=== PATIENT | female | born 1980 | race Two or more races ===

== ENCOUNTER 2024-02-25 12:48 | Emergency (ER) | payer MEDICAID, SELFPAY ==
[2024-02-25 13:32] VITALS: BP 120/78; PULSE 81; RESP 18; TEMP 36.9; O2SAT 99; BMI 32.4
--- NOTE | 2024-02-25 13:45 | XR_ITS ---
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
--- NOTE | 2024-02-25 13:48 | PD.EDRME ---
Rapid Medical Screening Exam RME Arrival date/time: 02/25/24 12:48 43-year-old female presents emergency department complaints of vaginal bleeding intermittently for 1 month. Reports history of labial mass and currently on control. Mild pelvic pain. I have greeted and performed a focused initial assessment of this patient. Initial appropriate labs ordered at this time. A comprehensive ED assessment and evaluation of the patient and analysis of all test and completion of medical decision making process will be conducted by additional ED provider. Chief Complaint: Vaginal Bleeding Time Seen by Provider: 02/25/24 12:52 Vital signs: Vital Signs Temperature 98.5 F 02/25/24 13:32 Pulse Rate 81 02/25/24 13:32 Respiratory Rate 18 02/25/24 13:32 Blood Pressure 120/78 02/25/24 13:32 Pulse Oximetry (%) 99 02/25/24 13:32 Oxygen Delivery Method Room Air 02/25/24 13:32
[2024-02-25 14:04] LABS: Basophils % (Auto) 0 % (0-2.5); Eosinophils # (Auto) 0.1 Thou/mm3 (0.0-0.5); Eosinophils % (Auto) 1 % (0-10); Hematocrit 35.8 % (36.0-46.0); Immature Granulocytes % (Auto) 0 % (0-0); Immature Granulocytes Auto 0.02 Thou/mm3 (0.00-0.00); Lymphocytes # (Auto) 2.8 Thou/mm3 (1.0-4.8); Lymphocytes % (Auto) 35 % (10-50); Mean Corpuscular HGB Conc 33.5 g/dl (31.0-37.0); Mean Corpuscular Hemoglobin 28.8 pg (25.0-35.0); Mean Corpuscular Volume 86 fL (80-100); Monocytes # (Auto) 0.5 Thou/mm3 (0.0-0.8); Monocytes % (Auto) 6 % (0-12); Neutrophils # (Auto) 4.6 Thou/mm3 (1.8-7.7); Neutrophils % (Auto) 57 % (37-80); Nucleated Red Blood Cell % 0 /100 WBC (0); Platelet Count 262 Thou/mm3 (140-440); RDW Standard Deviation 38.4 fL (36.4-46.3); Red Blood Count 4.16 Miln/mm3 (4.00-5.20); White Blood Count 7.9 Thou/mm3 (3.6-11.0)
[2024-02-25 14:29] LABS: Alanine Aminotransferase 18 U/L (10-49); Albumin, Serum 4.6 gm/dL (3.5-5.0); Alkaline Phosphatase 73 U/L (46-116); Anion Gap 7 (7-16); Aspartate Amino Transferase 13 U/L (0-34); BUN/Creatinine Ratio 17 Ratio (12-20); Bilirubin,Total 1.1 mg/dL (0.3-1.2); Blood Urea Nitrogen 12 mg/dL (9-23); Calcium 9.8 mg/dL (8.3-10.6); Calcium (Corrected) 9.8 mg/dL (8.5-10.1); Carbon Dioxide 29.2 mMol/L (20.0-31.0); Chloride 103 mMol/L (98-107); Creatinine (Component) 0.7 mg/dL (0.6-1.3); Globulin 2.3 gm/dL (2.3-3.5); Glucose 139 mg/dL (74-106); Lipase 33 U/L (12-53); Osmolality,Calculated 279 (275-295); Potassium 4.1 mMol/L (3.4-5.1); Sodium 139 mMol/L (136-145); Total Protein 6.9 gm/dL (5.7-8.2); eGFR > 60 See Note
[2024-02-25 15:43] LABS: Collection Type, Urine Catheter
[2024-02-25 15:55] LABS: HCG Qualitative,Urine Negative
[2024-02-25 16:00] LABS: Bilirubin,Urine Negative (Negative); Blood,Urine 3+ (Negative); Clarity,Urine Clear (Clear/Hazy); Color,Urine Lt-Brown (Lt Yel-Yel); Glucose, Urine Negative (Negative); Ketones,Urine Negative (Negative); Leukocyte Esterase,Urine Negative (Negative); Nitrite,Urine Negative (Negative); PH,Urine 7.5 (5.0-7.0); Protein,Urine 1+ (Neg - Trace); RBC,Urine 1 /hpf (0-3); Specific Gravity,Urine 1.013 (1.001-1.035); Squamous Epithelial Cell,Urine 11 /hpf (0-5); Urobilinogen,Urine Negative mg/dL (0.0-1.0); WBC,Urine 3 /hpf (0-5)
--- NOTE | 2024-02-25 16:10 | EDNOTE_ITS ---
<Statement entered by Rose Westbrook MD - 02/25/24 17:06> As co-signing physician, I was present and available for consult prn. I concur with the plan and care as documented by the midlevel provider. ED OB Contraction Preg RMI/HPI General Chief complaint: Vaginal Bleeding Stated complaint: Vaginal bleeding X 2 days Time Seen by Provider: 02/25/24 12:52 Arrival date/time: 02/25/24 12:48 RME / HPI RME / HPI Narrative: 43-year-old female patient with significant history of on and off vaginal bleeding for 1 month, getting worse for the last 2 days severity moderate. Patient is currently on control. Patient also complained of mild pelvic discomfort. Related Data Home Medications ?Medication ?Instructions ?Recorded ?Confirmed metformin 1,000 mg tablet 1,000 mg PO QDAY 11/26/22 11/27/22 semaglutide 7 mg tablet (Rybelsus) 7 mg PO QAM 11/27/22 11/27/22 Previous Rx's ?Medication ?Instructions ?Recorded docusate sodium 100 mg capsule 100 mg PO BID #40 caps 11/27/22 (Colace) hydrocodone 5 mg-acetaminophen 325 1 tab PO Q6H PRN pain (scale score 11/27/22 mg tablet 7-10) #20 tabs ibuprofen 600 mg tablet 600 mg PO Q8H PRN pain (scale 11/27/22 score 4-6) #15 tabs fluconazole 150 mg tablet 150 mg PO Q3D 2 doses #2 tabs 06/13/23 Allergies Allergy/AdvReac Type Severity Reaction Status Date / Time No Known Allergies Allergy Verified 05/19/23 17:23 Review of Systems Review of Systems Narrative Review of Systems: Review of system reviewed and within normal limits except mentioned in HPI ED Exam Narrative Physical exam: VITAL SIGNS: Reviewed. GENERAL APPEARANCE: Alert and interactive, follows commands, no acute distress, HEAD AND FACE: Non-traumatic. ENT: PERRL, pink conjunctivitis, eyelid no trauma, Mucous membrane moist. NECK: Supple, nontender, no nuchal rigidity. CHEST: No tenderness, no crepitus, no paradoxical movement, no retractions. LUNGS: Clear, well ventilated, symmetric, no rales, no wheezing, no ronchi, no stridor, good breath sounds bilaterally. HEART: Regular rate, regular rhythm, no murmur, no gallops. ABDOMEN: Soft, positive bowel sounds, nondistended, no guarding, nontender, no rebound, no masses, RECTAL: Deferred. GENITAL: Deferred. NEUROLOGICAL: Gross motor function intact sensory function intact, Appropriate for age. MUSCULOSKELETAL: low back nontender, full range of motion. EXTREMITIES: Nontender, full range of motion. SKIN: Color pink, dry, no rash, no lacerations, no abrasions, no contusions. LYMPHATICS: Deferred. Course Quality Measures none Orders Category Date Time Status US pelvic complete Stat Exams 02/25/24 13:45 Completed CBC Stat Lab 02/25/24 13:53 Completed Comprehensive Metabolic Panel Stat Lab 02/25/24 13:53 Completed HCG Qualitative,Urine Stat Lab 02/25/24 15:21 Completed Lipase Stat Lab 02/25/24 13:53 Completed Urinalysis Stat Lab 02/25/24 15:21 Completed Vital Signs Vital signs: Vital Signs Temperature 98.5 F 02/25/24 13:32 Pulse Rate 81 02/25/24 13:32 Respiratory Rate 18 02/25/24 13:32 Blood Pressure 120/78 02/25/24 13:32 Pulse Oximetry (%) 99 02/25/24 13:32 Oxygen Delivery Method Room Air 02/25/24 13:32 Vaginal Bleeding MDM Narrative MDM Narrative: Patient's workup today all came back normal patient is not hemoglobin is 12 hematocrit of 35.8 platelets is normal urinalysis no UTI ultrasound of the pelvis showed 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 Sim jimena was given a copy of her ultrasound for her to follow-up with her [facility]. Patient agrees with the plan Patient data External records reviewed:: None Clinical information provided by:: patient Social determinants that could affect healthcare access:: none Patient has the following chronic illnesses:: None How is presenting disease/condition affected by chronic disease/condition?: no chronic disease Evaluation data The following diagnostics were reviewed and interpreted by me:: lab results and radiology exam(s) Lab and/or radiology exams considered but not ordered:: None Interpretation Summary: Ultrasound of pelvis showed 4.9 x 4.1 x 4.6 cm right uterine fundal mass most c onsistent with fibroid degeneration, recommend six-month transvaginal pelvic sonography follow-up. Laboratory workup came back unremarkable no anemia. Medications / Prescriptions Medications or Prescriptions considered but not ordered:: None Medication administrations:: None Consultations Consultation(s) initiated? (list below): No Diagnosis Vaginal Bleeding Differential Diagnosis: dysfunctional uterine bleeding, menometrorrhagia and vaginal bleeding Most likely diagnosis given after review of the tests above:: Dysfunctional uterine bleeding, vaginal bleeding, uterine fibroid Admission Indicated Admission indicated?: not indicated Admission Request Was there a request for admission?: No Disposition Plan Disposition Plan: Discharge Discharge Attestation Discharge Attestation: The patient was given an opportunity to ask questions and understood the discharge instructions. Discharge instructions specifically effects, indications for sooner follow up or return to the emergency department, and the expected course of current diagnosis. Patient condition: Stable Discharge Plan Plan Patient Disposition: HOME (Self Care) Disposition Comment: Stable Prescriptions/Referrals Prescriptions/Med Rec: No Action metformin 1,000 mg Tablet 1,000 mg PO QDAY Rybelsus 7 mg tablet 7 mg PO QAM Patient Comments: TOME MIR TABLETA TODOS LOS D 30 MINUTOS ANTES DE LA PRIMERA COMIDA DEL LUIS E CON 4 OZ DE AGUA docusate sodium [Colace] 100 mg capsule 100 mg PO BID Qty: 40 0RF hydrocodone-acetaminophen 5-325 mg tablet 1 tab PO Q6H MDD 4 PRN (Reason: pain (scale score 7-10)) Qty: 20 0RF ibuprofen 600 mg tablet 600 mg PO Q8H PRN (Reason: pain (scale score 4-6)) Qty: 15 0RF fluconazole 150 mg tablet 150 mg PO Q3D Qty: 2 0RF Referrals: Haile Peng [Primary Care Provider] - In 1 week Problem List Clinical Impression: Vaginal bleeding, Fibroid, uterine Patient/Caregiver Discharge Instructions Discharge Activity: activity as tolerated Education Materials: ED Dysfunctional Uterine Bleeding Additional Instructions: Thank you for the opportunity for serving you today. You are stable for discharged . You are advised to: Follow-up with your PCP in 1 to 2 days Return to ED for worsening of symptoms Increase oral fluids Follow-up with your PCP and asked for referral to [facility] regarding your uterine fibroids. Print Language: Croatian Stand Alone Forms: Gu[facility] Award Info., Patient Portal Info Letter PA/CATTLE TRADER Supervising Physician PA/CATTLE TRADER Supervising Physician: MD Dariana
== END 2024-02-25 16:51 | disposition home or self-care (01) ==
PROVIDERS: Nurse Practitioner Primary Care; Emergency Provider Emergency Medicine; PCP Physician Assistant
DX: D25.9 Leiomyoma of uterus, unspecified (principal); N93.9 Abnormal uterine and vaginal bleeding, unspecified
CPT/HCPCS: 36415; 76856; 80053; 81001; 81025; 83690; 85025; 99284

== ENCOUNTER 2024-03-21 13:04 | Emergency (ER) | payer MEDICAID, SELFPAY ==
[2024-03-21 13:05] VITALS: BMI 34.0
[2024-03-21 14:16] VITALS: BP 109/75; PULSE 96; RESP 17; TEMP 37.1; O2SAT 99
--- NOTE | 2024-03-21 14:22 | EDNOTE_ITS ---
Lower Extremity Injury RME/HPI General Chief Complaint: Ankle/Foot Injury Stated Complaint: LEFT FOOT INJURY TODAY Time Seen by Provider: 03/21/24 14:00 Source: patient Arrival date/time: 03/21/24 13:04 This is a 43-year-old female presents the emergency department complaints of left ankle pain and abrasion after injury today she states she was walking down the heel during her morning walk when she accidentally stepped on a rock causing her to invert her left ankle. Complains of pain with every step. No other injuries reported. Mode of arrival: ambulatory Related Data Home Medications ?Medication ?Instructions ?Recorded ?Confirmed metformin 1,000 mg tablet 1,000 mg PO QDAY 11/26/22 11/27/22 semaglutide 7 mg tablet (Rybelsus) 7 mg PO QAM 11/27/22 11/27/22 Previous Rx's ?Medication ?Instructions ?Recorded docusate sodium 100 mg capsule 100 mg PO BID #40 caps 11/27/22 (Colace) hydrocodone 5 mg-acetaminophen 325 1 tab PO Q6H PRN pain (scale score 11/27/22 mg tablet 7-10) #20 tabs ibuprofen 600 mg tablet 600 mg PO Q8H PRN pain (scale 11/27/22 score 4-6) #15 tabs fluconazole 150 mg tablet 150 mg PO Q3D 2 doses #2 tabs 06/13/23 ibuprofen 600 mg tablet 600 mg PO QID PRN fever or pain 03/21/24 #30 tabs Allergies Allergy/AdvReac Type Severity Reaction Status Date / Time No Known Allergies Allergy Verified 03/21/24 13:07 Review of Systems Review of Systems Systems Reviewed: All systems reviewed, normal except as documented Narrative Review of Systems: Gen: No fever, no chills, no weight loss EYES: No discharge, no visual changes, no pain HEENT: No ear pain, no congestion, no sore throat PULM: No shortness of breath, no cough, no congestion CV: No chest pain, no dyspnea on exertion, no palpitations GI: No nausea, no vomiting, no diarrhea, no pain, no constipation : No frequency, no urgency,? no dysuria Musc/skel: left ankle pain, no back pain Skin: No rash? ED Exam Narrative Physical exam: General: Sittiing in Exam table in no acute distress, answering questions derek ropriately HENT: normocephalic, atraumatic, EOMI, PERRLA, moist mucous membranes Chest: chest wall is nontender Cardiac: regular rate and rhythm, normal S1 and S2, no murmurs, rubs, or gallops, capillary refill ?2 seconds Pulmonary: clear to auscultation bilaterally, no wheezing, crackles, or rhonchi Abdominal: active bowel sounds, soft, nontender, nondistended Neuro: A&OX3, CN II-XII intact, sensation grossly intact bilaterally in UE and LE. Skin: no rashes, no ecchymosis Ext: Left ankle lateral malleolus swelling tender to palpation. Course Quality Measures none Orders Category Date Time Status Crutches .NOW Care 03/21/24 15:04 Active Splint / Immobilizer STAT Care 03/21/24 15:04 Active XR ankle comp LT min 3V Stat Exams 03/21/24 14:22 Completed Ibuprofen Tab [Motrin Tab] Med 03/21/24 14:21 Discontinued 800 mg PO X1 ONE Vital Signs Vital signs: Vital Signs Temperature 98.7 F 03/21/24 14:16 Pulse Rate 96 03/21/24 14:16 Respiratory Rate 17 03/21/24 14:16 Blood Pressure 109/75 03/21/24 14:16 Pulse Oximetry (%) 99 03/21/24 14:16 Oxygen Delivery Method Room Air 03/21/24 14:16 Extremity Injury, Lower MDM Narrative MDM Narrative:: There is no clinical indication for compartment syndrome at this time, patient has positive pedal and popliteal pulses. Patient's left calf/leg is not swollen, neg pain or taut. There is mild swelling to left ankle, 2 the area of the sprain. The patient is not presenting with pain out of proportion at this time. Patient can be safely discharged with the use of crutches, ankle stirrup. Patient instructed to please not bear weight on that limb. Mother instructed to take patient to primary doctor for orthopedic referral if indicated and further management Patient data External records reviewed:: [facility] previous records Clinical information provided by:: patient Social determinants that could affect healthcare access:: none Patient has the following chronic illnesses:: None How is presenting disease/condition affected by chronic disease/condition?: no chronic disease Evaluation data The following diagnostics were reviewed and interpreted by me:: radiology exam(s) Lab and/or radiology exams considered but not ordered:: no Interpretation Summary: EXAMINATION: Ankle, left 3 views . Technique: Ankle AP, oblique, lateral 3 views Date and time of exam: March 21, 2024 1440 hours INDICATIONS: Patient fell today with injury to the ankle, ankle pain. FINDINGS: No acute fracture No dislocation No foreign body IMPRESSION: No acute fracture Medications / Prescriptions Medications or Prescriptions considered but not ordered:: no Medication administrations:: Medication Administration History Discontinued Medications Ibuprofen (Ibuprofen Tab 400 Mg Tablet) 800 mg PO X1 ONE Stop: 03/21/24 14:22 Last Admin: 03/21/24 14:57 Dose: 800 mg Documented By: KF All medications administered and effective Consultations Consultation(s) initiated? (list below): No Diagnosis Extremity Injury, Lower Differential Diagnosis: ankle sprain and strain, acute internal derangement of knee and ankle fracture Most likely diagnosis given after review of the tests above:: ankle Sprain Admission Indicated Admission indicated?: not indicated Admission Request Was there a request for admission?: No Disposition Plan Disposition Plan: Discharge Discharge Attestation Discharge Attestation: The patient and all family members were given an opportunity to ask questions and understood the discharge instructions. Discharge instructions specifically effects, indications for sooner follow up or return to the emergency department, and the expected course of current diagnosis. Patient condition: Stable Discharge Plan Plan Patient Disposition: HOME (Self Care) Patient condition on transfer: Stable Prescriptions/Referrals Prescriptions/Med Rec: New ibuprofen 600 mg tablet 600 mg PO QID PRN (Reason: fever or pain) Qty: 30 0RF No Action metformin 1,000 mg Tablet 1,000 mg PO QDAY Rybelsus 7 mg tablet 7 mg PO QAM Patient Comments: TOME MIR TABLETA TODOS LOS D 30 MINUTOS ANTES DE LA PRIMERA COMIDA DEL LUIS E CON 4 OZ DE AGUA docusate sodium [Colace] 100 mg capsule 100 mg PO BID Qty: 40 0RF hydrocodone-acetaminophen 5-325 mg tablet 1 tab PO Q6H MDD 4 PRN (Reason: pain (scale score 7-10)) Qty: 20 0RF ibuprofen 600 mg tablet 600 mg PO Q8H PRN (Reason: pain (scale score 4-6)) Qty: 15 0RF fluconazole 150 mg tablet 150 mg PO Q3D Qty: 2 0RF Problem List Clinical Impression: Ankle sprain and strain Patient/Caregiver Discharge Instructions Discharge Activity: activity as tolerated Education Materials: ED Ankle Sprain (Adult) Additional Instructions: Usted blevins sido evaluado hoy en el Departamento de Emergencias. La radiograf?a de tu tobillo es negativa Puede alternar Tylenol y Motrin cada 4 a 6 horas para ayudar a controlar el dolor. Tambi?n descanse, aplique hielo y eleve el tobillo para controlar el dolor. usar los crutches. Johnson un seguimiento con mendoza m?dico de atenci?n primaria seg?n sea necesario. Si no tiene un m?dico de atenci?n primaria, puede llamar a mendoza fred??a de seguros para buscar ailin. Si no tiene seguro, puede acudir al departamento de finanzas/registro para obtener m?s ayuda. Regrese al Departamento de Emergencias si experimenta un empeoramiento del dolor, entumecimiento/hormigueo, cambio de color en los dedos de los pies o cualquier otro s?ntoma preocupante. Print Language: Bahraini Stand Alone Forms: Guillermina Award Info., Patient Portal Info Letter PA/FISHING ROD MECHANIC Supervising Physician PA/FISHING ROD MECHANIC Supervising Physician: Dr. Steven
[2024-03-21] MEDS: IBUPROFEN TAB 400 MG TABLET 800 MG PO (14:57)
== END 2024-03-21 16:14 | disposition home or self-care (01) ==
PROVIDERS: Emergency Provider Emergency Medicine
DX: S93.402A Sprain of unspecified ligament of left ankle, initial encounter (principal); S96.912A Strain of unspecified muscle and tendon at ankle and foot level, left foot, initial encounter; W18.31XA Fall on same level due to stepping on an object, initial encounter; Y93.01 Activity, walking, marching and hiking
CPT/HCPCS: 29515; 73610; 99283; A9270

== ENCOUNTER 2024-05-19 14:04 | Emergency (ER) | payer MEDICAID, SELFPAY ==
[2024-05-19 14:25] VITALS: BP 121/86; PULSE 99; RESP 16; TEMP 36.9; O2SAT 98; BMI 31.7
--- NOTE | 2024-05-19 14:39 | XR_ITS ---
Examination: Pelvic ultrasound, transabdominal, complete Technique: Transabdominal ultrasound of the pelvis performed using grayscale imaging Date and time of exam: May 19, 2024 1451 hours Comparison February 25, 2024 INDICATIONS: Onset of pelvic pain and bleeding today FINDINGS: Uterus 12.4 cm endometrial stripe 0.8 cm Uterine fundal mass 6.4 x 5.1 x 5.2 cm Ovaries obscured by bowel gas IMPRESSION: Uterine area of probable fundal fibroid degeneration, 6.4 x 5.1 x 5.3 cm Recommend 3 month follow-up transvaginal pelvic sonography
[2024-05-19 15:15] LABS: Collection Type, Urine Clean Catch
[2024-05-19 15:21] LABS: HCG Qualitative,Urine Negative
[2024-05-19 15:26] LABS: Bacteria,Urine 4+; Bilirubin,Urine 1+ (Negative); Blood,Urine Negative (Negative); Clarity,Urine Clear (Clear/Hazy); Color,Urine Drk-Yellow (Lt Yel-Yel); Glucose, Urine 1+ (Negative); Ketones,Urine 1+ (Negative); Leukocyte Esterase,Urine Positive (Negative); Nitrite,Urine Negative (Negative); Protein,Urine 2+ (Neg - Trace); RBC,Urine 1 /hpf (0-3); Squamous Epithelial Cell,Urine 2 /hpf (0-5); WBC,Urine 1 /hpf (0-5)
[2024-05-19 15:30] LABS: Culture Indicated,Urine Yes; Specific Gravity,Urine > 1.030 (1.001-1.035)
[2024-05-19 15:53] LABS: Basophils % (Auto) 0 % (0-2.5); Eosinophils # (Auto) 0.1 Thou/mm3 (0.0-0.5); Eosinophils % (Auto) 1 % (0-10); Hematocrit 37.4 % (36.0-46.0); Hemoglobin 12.7 g/dL (12.0-16.0); Immature Granulocytes % (Auto) 0 % (0-0); Immature Granulocytes Auto 0.02 Thou/mm3 (0.00-0.00); Lymphocytes # (Auto) 2.8 Thou/mm3 (1.0-4.8); Lymphocytes % (Auto) 31 % (10-50); Mean Corpuscular Hemoglobin 28.6 pg (25.0-35.0); Mean Corpuscular Volume 84 fL (80-100); Monocytes # (Auto) 0.5 Thou/mm3 (0.0-0.8); Monocytes % (Auto) 6 % (0-12); Neutrophils # (Auto) 5.5 Thou/mm3 (1.8-7.7); Neutrophils % (Auto) 62 % (37-80); Nucleated Red Blood Cell % 0 /100 WBC (0); Platelet Count 267 Thou/mm3 (140-440); RDW Standard Deviation 38.3 fL (36.4-46.3); Red Blood Count 4.44 Miln/mm3 (4.00-5.20); White Blood Count 8.9 Thou/mm3 (3.6-11.0)
[2024-05-19 16:08] LABS: Alanine Aminotransferase 13 U/L (10-49); Albumin, Serum 4.6 gm/dL (3.5-5.0); Albumin/Globulin Ratio 1.6 (1.2-2.2); Alkaline Phosphatase 64 U/L (46-116); Anion Gap 10 (7-16); Aspartate Amino Transferase 15 U/L (0-34); BUN/Creatinine Ratio 16 Ratio (12-20); Bilirubin,Total 0.6 mg/dL (0.3-1.2); Blood Urea Nitrogen 14 mg/dL (9-23); Calcium 10.5 mg/dL (8.3-10.6); Calcium (Corrected) 10.5 mg/dL (8.5-10.1); Carbon Dioxide 24.6 mMol/L (20.0-31.0); Chloride 104 mMol/L (98-107); Creatinine (Component) 0.9 mg/dL (0.6-1.3); Estimated Creatinine Clearance 79.1 mL/min (>60); Globulin 2.9 gm/dL (2.3-3.5); Glucose 181 mg/dL (74-106); Lipase 31 U/L (12-53); Osmolality,Calculated 283 (275-295); Sodium 139 mMol/L (136-145); Total Protein 7.5 gm/dL (5.7-8.2); eGFR > 60 See Note
--- NOTE | 2024-05-19 16:50 | PD.EDVAGBL ---
ED OB Contraction Preg RMI/HPI General Chief complaint: Vaginal Bleeding Stated complaint: VAGINAL BLEEDING / CRAMPS X 2 WKS; HX CYSTS X 1 YR Time Seen by Provider: 05/19/24 14:12 Arrival date/time: 05/19/24 14:04 43-year-old female with history of dysfunctional uterine bleeding and ovarian cyst versus mass presents to the emergency department today with concerns for vaginal bleeding ongoing intermittently for the last couple of weeks Limitations: no limitations Related Data Home Medications ?Medication ?Instructions ?Recorded ?Confirmed metformin 1,000 mg tablet 1,000 mg PO QDAY 11/26/22 05/23/24 semaglutide 7 mg tablet (Rybelsus) 7 mg PO QAM 11/27/22 05/23/24 Previous Rx's ?Medication ?Instructions ?Recorded docusate sodium 100 mg capsule 100 mg PO BID #40 caps 11/27/22 (Colace) hydrocodone 5 mg-acetaminophen 325 1 tab PO Q6H PRN pain (scale score 11/27/22 mg tablet 7-10) #20 tabs ibuprofen 600 mg tablet 600 mg PO Q8H PRN pain (scale 11/27/22 score 4-6) #15 tabs ibuprofen 600 mg tablet 600 mg PO QID PRN fever or pain 03/21/24 #30 tabs acetaminophen-pamabrom 500 mg-25 1 tab PO Q6H PRN menstrual pain 5 05/23/24 mg tablet (Midol) days #20 tabs levofloxacin 500 mg tablet 500 mg PO QDAY 7 days #7 tabs 05/23/24 norethindrone acetate 5 mg tablet 5 mg PO QDAY 21 days #21 tabs 05/23/24 Allergies Allergy/AdvReac Type Severity Reaction Status Date / Time No Known Allergies Allergy Verified 05/23/24 11:20 Review of Systems Review of Systems Systems Reviewed: All systems reviewed, normal except as documented Constitutional Constitutional: Reports system reviewed and no additional complaints, except as documented, Denies fever(s) and Denies headache(s) Eyes Eyes: Reports system reviewed and no additional complaints, except as documented and Denies blurry vision ENT Ears, Nose, Mouth, and Throat: Reports system reviewed and no additional complaints, except as documented, Denies headache(s), Denies nasal congestion and Denies nasal discharge Cardiovascular Cardiovascular: Reports system reviewed and no additional complaints, except as documented, Denies chest pain and Denies dyspnea Respiratory Respiratory: Reports system reviewed and no additional complaints, except as documented, Denies chest congestion, Denies cough and Denies dyspnea Gastrointestinal Gastrointestinal: Reports system reviewed and no additional complaints, except as documented and Denies abdominal pain Genitourinary Genitourinary: Reports system reviewed and no additional complaints, except as documented and Reports abnormal vaginal bleeding Integumentary/Breasts Skin/Breast: Reports system reviewed and no additional complaints, except as documented and Denies rash Neurologic Neurologic: Reports system reviewed and no additional complaints, except as documented, Reports as per HPI and Denies headache(s) Past Medical History Past Medical History NEUROLOGIC: Negative Neurological Disorders or Seizures CARDIAC: Positive Hypertension; Negative Cardiac Disorders or Congestive Heart Failure RESPIRATORY: Positive Bronchitis; Negative Chronic Obstructive Pulmonary Disease (COPD) or Asthma GASTROINTESTINAL: Positive Gastrointestinal Disorders and Obesity GENITOURINARY: Negative Genitourinary Disorders or Renal Disease REPRODUCTIVE: Positive Previous Pregnancies; Negative Endometriosis MUSCULOSKELETAL: Negative Musculoskeletal Disorders ENDOCRINE: Positive Endocrine Disorders and Diabetes Mellitus Type 2; Negative Diabetes Mellitus Type 1 HEMATOLOGIC: Positive Blood Disorders and Anemia; Negative Sickle Cell Disease OTHER HISTORY: Positive Chicken Pox; Negative Hospitalization, Autoimmune Disease, Shingles, Blood Transfusions, Blood Transfusion Reaction, Anesthesia Reactions, MRSA or Cancer Family History FAMILY HISTORY: Negative Family Psychiatric Problems, Family Respiratory Disorders, Family Cardiac Disorders, Family Gastrointestinal Problems, Family Cancer, Family Surgery or Family Anesthesia Reaction Surgical History SURGICAL: Positive Tubal Ligation and Section (x3) Social History SMOKING STATUS: Never smoker ED Exam General Limitations: Present no limitations General appearance: Present alert and in no apparent distress Head Head exam: Present atraumatic Eye Eye exam: Present normal appearance, PERRL and EOMI ENT ENT exam: Present normal exam, normal oropharynx and mucous membranes moist Neck Neck exam: Present normal inspection, full ROM and trachea midline Chest Chest inspection: Present normal inspection and symmetric chest wall rise Respiratory Respiratory exam: Present normal lung sounds bilaterally Cardiovascular Cardiovascular exam: Present regular rate, normal rhythm and normal heart sounds Abdominal Exam Abdominal exam: Present soft and normal bowel sounds Extremities Exam Extremities exam: Present normal inspection and full ROM Back Exam Back exam: Present normal inspection and full ROM Neurological Exam Neurological exam: Present alert, oriented X3 and CN II-XII intact Psychiatric Psychiatric exam: Present normal affect and normal mood Skin Skin exam: Present warm, dry, intact and normal color Course Quality Measures none Orders Category Date Time Status US pelvic complete Stat Exams 05/19/24 14:39 Completed CBC Stat Lab 05/19/24 15:32 Completed Comprehensive Metabolic Panel Stat Lab 05/19/24 15:32 Completed HCG Qualitative,Urine Stat Lab 05/19/24 15:05 Completed Lipase Stat Lab 05/19/24 15:32 Completed UA, C/S IF [Urinalysis, C/S if Indicated] Stat Lab 05/19/24 15:05 Completed Urine Culture Stat Lab 05/19/24 15:05 Completed Vital Signs Vital signs: Vital Signs Temperature 98.5 F 05/19/24 14:25 Pulse Rate 99 05/19/24 14:25 Respiratory Rate 16 05/19/24 14:25 Blood Pressure 121/86 H 05/19/24 14:25 Pulse Oximetry (%) 98 05/19/24 14:25 Oxygen Delivery Method Room Air 05/19/24 14:25 O2 saturation 98% room air within normal limits Vaginal Bleeding MDM Narrative MDM Narrative: 43-year-old female with history of dysfunctional uterine bleeding and ovarian cyst versus mass presents to the emergency department today with concerns for vaginal bleeding ongoing intermittently for the last couple of weeks On exam patient well-appearing patient does not appear ill or toxic in no acute distress Patient will demonstrate stable patient reports no dizziness or weakness Lab work as well as ultrasound obtained Patient lab work and ultrasound I do believe patient can be discharged home at this time but needs a follow-up on an outpatient basis Consultation: I spoke with Dr. Morrow SENIOR SPECIALIST states he will see the patient as office and discuss options with the patient For emergent concerns patient struck to return immediately Patient data External records reviewed:: [facility] previous records Clinical information provided by:: patient Social determinants that could affect healthcare access:: none Patient has the following chronic illnesses:: None How is presenting disease/condition affected by chronic disease/condition?: no chronic disease Evaluation data The following diagnostics were reviewed and interpreted by me:: lab results and radiology exam(s) Lab and/or radiology exams considered but not ordered:: Labs radiology obtain Interpretation Summary: Reviewed by me Medications / Prescriptions Medications or Prescriptions considered but not ordered:: Given no meds Medication administrations:: Given no meds Consultations Consultation(s) initiated? (list below): Yes Consultation #1 (Physician, Specialty, Details): Dr. Morrow Diagnosis Vaginal Bleeding Differential Diagnosis: dysfunctional uterine bleeding, menometrorrhagia and vaginal bleeding Most likely diagnosis given after review of the tests above:: Dysfunction uterine bleeding Admission Indicated Admission indicated?: not indicated Admission Request Was there a request for admission?: No Disposition Plan Disposition Plan: Discharge Discharge Attestation Discharge Attestation: The patient and all family members were given an opportunity to ask questions and understood the discharge instructions. Discharge instructions specifically effects, indications for sooner follow up or return to the emergency department, and the expected course of current diagnosis. Patient condition: Stable Discharge Plan Plan Patient Disposition: HOME (Self Care) Disposition Comment: Stable Prescriptions/Referrals Prescriptions/Med Rec: No Action norethindrone acetate 5 mg tablet 5 mg PO QDAY 21 Days Qty: 21 0RF levofloxacin 500 mg tablet 500 mg PO QDAY 7 Days Qty: 7 0RF Midol 500-25 mg tablet 1 tab PO Q6H PRN (Reason: menstrual pain) 5 Days Qty: 20 0RF metformin 1,000 mg Tablet 1,000 mg PO QDAY Rybelsus 7 mg tablet 7 mg PO QAM Patient Comments: TOME MIR TABLETA TODOS LOS D 30 MINUTOS ANTES DE LA PRIMERA COMIDA DEL LUIS E CON 4 OZ DE AGUA docusate sodium [Colace] 100 mg capsule 100 mg PO BID Qty: 40 0RF hydrocodone-acetaminophen 5-325 mg tablet 1 tab PO Q6H MDD 4 PRN (Reason: pain (scale score 7-10)) Qty: 20 0RF ibuprofen 600 mg tablet 600 mg PO Q8H PRN (Reason: pain (scale score 4-6)) Qty: 15 0RF ibuprofen 600 mg tablet 600 mg PO QID PRN (Reason: fever or pain) Qty: 30 0RF Referrals: No Primary/Family,Physician [Primary Care Provider] - In 1 week Problem List Clinical Impression: DUB (dysfunctional uterine bleeding), Pelvic mass Patient/Caregiver Discharge Instructions Education Materials: ED Dysfunctional Uterine Bleeding Additional Instructions: Please follow-up with Dr. Morrow Thursday at 9 AM for worsening symptoms or concerns return immediately Please inform the front office staff that the provider in the ER Andrés spoke with Dr. Morrow and he states he will see you Print Language: Wolof Stand Alone Forms: Gu[employer]erm[employer] Award Info., Patient Portal Info Letter PA/LABORATORY MACHINIST Supervising Physician PA/LABORATORY MACHINIST Supervising Physician: dr tong
== END 2024-05-19 17:10 | disposition home or self-care (01) ==
PROVIDERS: Nurse Practitioner Primary Care; Emergency Provider Emergency Medicine
DX: N85.8 Other specified noninflammatory disorders of uterus (principal)
CPT/HCPCS: 36415; 76856; 80053; 81001; 81025; 83690; 85025; 87086; 99284

== ENCOUNTER 2024-05-23 11:13 | Outpatient (AMB) | payer MEDICAID, SELFPAY ==
[2024-05-23 11:19] VITALS: BP 111/72; PULSE 100; RESP 16; TEMP 36.8; O2SAT 98; BMI 32.1
--- NOTE | 2024-05-23 11:19 | GYNCLNT_ITS ---
Vital Signs 05/23/24 11:19 Height 1.57 m Height Method Stated Weight 79.095 kg Weight Measurement Method Standing Scale BMI 32.1 BP 111/72 Blood Pressure Source Automatic Cuff Blood Pressure Location Left Upper Arm Position Sitting Respiration 16 Pulse 100 Pulse Source Monitor Temp 98.2 F Temp Source Oral Pulse Oximetry (%) 98 Oxygen Delivery Method Room Air Allergies/Home Meds Allergies & Medications Allergies No Known Allergies Allergy (Verified 05/23/24 11:20) Medication Reconciliation metformin 1,000 mg tablet 1,000 mg PO QDAY 11/26/22 [History Confirmed 05/23/24] docusate sodium 100 mg capsule (Colace) 100 mg PO BID #40 caps 11/27/22 [Rx Confirmed 05/23/24] hydrocodone 5 mg-acetaminophen 325 mg tablet 1 tab PO Q6H PRN pain (scale score 7-10) #20 tabs 11/27/22 [Rx Confirmed 05/23/24] ibuprofen 600 mg tablet 600 mg PO Q8H PRN pain (scale score 4-6) #15 tabs 11/27/22 [Rx Confirmed 05/23/24] semaglutide 7 mg tablet (Rybelsus) 7 mg PO QAM 11/27/22 [History Confirmed 05/23/24] ibuprofen 600 mg tablet 600 mg PO QID PRN fever or pain #30 tabs 03/21/24 [Rx Confirmed 05/23/24] norethindrone acetate 5 mg tablet 5 mg PO QDAY 21 days #21 tabs 05/23/24 [Rx] Intake Visit Data Collection New Patient or Established: Established Patient (seen at [facility] within 3 years) Reason for Visit:: Fibroids Seen by Clinical Staff ONLY (RN/MA): No Airport Sales Agent Required: Yes Airport Sales Agent's name/title: BIMAL MONTES /PATHOLOGY LAB TECHNICIAN Do You Feel Safe at Home: Yes Authorities Contacted: N/A PCP or OBGYN visit in last 3 months: Yes Date of Last PCP or OBGYN visit: 05/19/24 Hx Now: No Are you currently on any form of Control: Yes Pain Present Currently: Yes Pain Location: Abdomen Pain Scale Used: Freedman-Tovar/Numerical Pain scale:: 3 Smoking Status Smoking Status: Never smoker [employer] history [employer] History Menstrual regularity: regular Flow: normal Monthly: Yes Currently sexually active: Yes Questionnaires PHQ-9 PHQ-2 Over the last 2 weeks, how often have you been bothered by any of the following problems? 1. Little interest or pleasure in doing things: not at all 2. Feeling down, depressed, or hopeless: not at all Total score: 0 PHQ-9 3. Trouble falling or staying asleep, or sleeping too much: Not at all 4. Feeling tired or having little energy: Not at all 5. Poor appetite or overeating: Not at all 6. Feeling bad about yourself - or that you are a failure or have let yourself or your family down: Not at all 7. Trouble concentrating on things, such as reading the newspaper or watching television: Not at all 8. Moving or speaking so slowly that other people could have noticed? - Or the opposite - being so fidgety or restless that you have been moving around a lot more than usual: not at all 9. Thoughts that you would be better off or of hurting yourself in some way: Not at all Total score: 0 If you checked off any problems, how difficult have these problems made it for you to do your work, take care of things at home, or get along with other people?: not difficult at all Source: Developed by Drs. Lance More, Yuly Jason, Byron Belcher and colleagues, with an educational janet from [employer]. Depression screen completed yes Social History Living Situation History Marital Status: Lives With: Family Housing: House Tobacco History Smoking Status: Never smoker Alcohol History Alcohol Intake: Never Domestic Abuse History Do You Feel Safe at Home: Yes Past Medical History Past Medical History Have you ever been diagnosed with any of the following: Neurological Problems Seizures: No Cardiology Problems Congestive Heart Failure: No Hypertension: Yes Respiratory Problems Chronic Obstructive Pulmonary Disease (COPD): No Asthma: No Bronchitis: Yes Stomache/Intestinal Problems Obesity: Yes Genital/Urinary Problems Renal Disease: No Reproductive Problems Endometriosis: No Previous Pregnancies: Yes Endocrine Problems Diabetes Mellitus Type 1: No Diabetes Mellitus Type 2: Yes Blood Problems Anemia: Yes Sickle Cell Disease: No Other Problems Hospitalization: No Shingles: No Blood Transfusions: No Blood Transfusion Reaction: No Anesthesia Reactions: No MRSA: No Chicken Pox: Yes Cancer: No History of Present Illness HPI Narrative The patient presents with a history of abnormal uterine bleeding since February 22. She reports having gone to the ER multiple times due to this issue. The bleeding is described as heavy, requiring the use of a liner, and is associated with a strong odor. An ultrasound performed in the ER on May 19 revealed a fibroid. The patient has been experiencing pain related to the fibroid. The patient has a history of diabetes and is currently . She reports being intolerant to certain medications but still requires treatment for her condition. The patient has previously been prescribed medication for the fibroid, but it has become ineffective over time. She expresses a desire for definitive jesse tment, citing her role as a single mother and primary caregiver in her household as reasons for seeking prompt intervention. Social History - Living situation: single mother, sole caregiver in the household - Social support: limited, as patient expressed concern about being the only one in charge at home Laboratory, Imaging, and Diagnostic Test Results - Ultrasound (performed on May 19, 2024 in the ER): - Uterus measuring 12.4 centimeters - Endometrial stripe of 0.8 centimeters - Fundal mass measuring 6.4 by 5.1 by 5.2 centimeters, consistent in appearance with a degenerating fibroid Review of Systems Review of Systems Systems Reviewed: All systems reviewed, normal except as documented Exam General Limitations: no limitations General Appearance: alert, in no apparent distress, comfortable, cooperative, healthy appearing, well developed and well groomed Head Head exam: atraumatic, normocephalic and normal inspection Neck Neck exam: Present normal inspection, full ROM and trachea midline Chest Chest inspection: Present normal inspection and symmetric chest wall rise Abdominal Abdominal exam: Present soft, normal bowel sounds and other (Uterine fundus at 2 cms below umbilicus) Extremities Extremities exam: Present normal inspection and full ROM Back Back exam: Present normal inspection and full ROM Psych Psychiatric exam: Present normal affect and normal mood Skin Skin exam: Present warm, dry, intact and normal color Assessment & Plan Diagnosis / Problem List (1) Intramural leiomyoma of uterus: Status: Acute Plan: Uterine Fibroid with Degeneration Patient presents with a large degenerating uterine fibroid measuring 6.4 x 5.1 x 5.2 cm, located in the fundal region. The fibroid is causing prolonged bleeding since February 22, with associated strong odor. Ultrasound shows uterus measuring 12.4 cm with endometrial stripe of 0.8 cm. The fibroid's size and degeneration are contributing to the patient's symptoms, including heavy bleeding and pain. Previous medical management has been ineffective due to the large size of the fibroid. - Schedule hysterectomy for definitive treatment - Initiate medication to reduce bleeding until surgery - Prescribe ibuprofen for pain management - Order blood work - Refer to cardiology for pre-operative clearance - Coordinate with insurance for surgical approval - Follow-up appointment in 2 weeks to review test results and surgical planning progress Reviewed treatment options for fibroids: For those not seeking fertility, treatment focuses on symptom reduction through a stepwise approach, considering patient preference and shared decision-making due to the lack of comparative superiority among treatments. * First Tier: Treatment includes hysteroscopic resection of submucosal fibroids or medical therapy for non-resectable fibroids. * Hysteroscopic Resection: Effective for FIGO type 0, 1, or 2 fibroids, offering rapid recovery and low complication risks. * Medical Therapy: Includes estrogen-progestin contraceptives, progestin- releasing IUDs, tranexamic acid, and high-dose oral progestins to manage HMB without significantly reducing fibroid size. * Second Tier * GnRH Analogs: GnRH antagonists and agonists can reduce HMB and fibroid volume but may have hypoestrogenic side effects. * Elagolix Combination Therapy: Effective with minimal side effects due to add- back therapy. * Relugolix Combination Therapy: Provides once-daily dosing with improvements in HMB and fibroid-related symptoms. * GnRH Agonists: Primarily used preoperatively to reduce fibroid size and improve anemia, though side effects limit long-term use. * Uterine Artery Embolization (UAE) * Third Tier * Minimally invasive and effective for managing fibroid-related symptoms in premenopausal patients who do not desire future fertility. It offers significant symptom improvement but may have more short-term complications compared to surgical options. * Focused Ultrasound Surgery * Non-invasive technique using ultrasound energy to treat fibroids, ideal for patients seeking less invasive options with rapid recovery. It provides sustained symptomatic improvement but may require reintervention. * Traditional Surgery * Hysterectomy: Definitive treatment, eliminating fibroid recurrence and abnormal bleeding but associated with long-term morbidity.Myomectomy: Preferred for patients with large or numerous fibroids, especially if fertility preservation is desired. Discussion: Benefits of Hysterectomy: Relief from heavy bleeding and pelvic pain. Permanent solution to symptoms significantly impacting the patient's quality of life. Effective treatment for conditions such as fibroids, endometriosis, or uterine cancer. Risks of Hysterectomy: General risks associated with anesthesia (e.g., medication reactions, breathing problems). Surgical risks including: Infection Bleeding Damage to surrounding organs (e.g., bladder, intestines). Post-surgical recovery period considerations. Alternatives to Hysterectomy: Medications: Hormonal treatments to manage symptoms. Minimally invasive procedures: Uterine artery embolization, endometrial ablation. Watchful waiting: Monitoring symptoms if they are not severe or life- threatening. Patient's Concerns: Expressed nervousness about the procedure and its implications. Plan: Provide additional educational materials about hysterectomy and alternative treatments. Schedule follow-up appointment to address any further questions and to assist in decision-making. Office Procedures OB Clinic LOC & Office Proc's Nursing/Assessment Patient Status: Established Patient OB Clinic Nursing Assessment: BP Monitoring, Medication Reconciliation, Update PMH in EMR and Vital Signs OB Clinic Coordination of Care: Complex Care and Chronic Disease 1-5, Consent,records obtained, informed consent, Education Simp Pt/Fam, Lab and Imaging orders and Staff clarify orders Established Patient Charge Established Patient Point Assignment: 115 Established Patient Point Charge: EP Level 3 (80-115)
== END 2024-05-23 11:35 | disposition home or self-care (01) ==
LOC: HODSOBC 11:13
PROVIDERS: Supervising Provider Obstetrics & Gynecology; Visit Provider Obstetrics & Gynecology
DX: D25.1 Intramural leiomyoma of uterus (principal)
CPT/HCPCS: 99213; G0463

== ENCOUNTER 2024-06-16 19:43 | Emergency (ER) | payer MEDICAID, SELFPAY ==
[2024-06-16 19:44] VITALS: BMI 33.6
--- NOTE | 2024-06-16 19:46 | EKG_ITS ---
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
[2024-06-16 20:12] VITALS: BP 168/84; PULSE 112; RESP 20; TEMP 36.8; O2SAT 99
--- NOTE | 2024-06-16 21:04 | PD.EDCHEST ---
ED Chest Pain RME/HPI General Chief Complaint: Chest Pain Stated Complaint: CHEST PAIN, DIZZINESS, MAI, Time Seen by Provider: 06/16/24 20:47 Arrival date/time: 06/16/24 19:43 RME / HPI RME / HPI narrative: This section includes all my notes and documentations, including HPI, PE, and ED course. Arnol Vazquez MD HPI: 43 y/o female with Hx of Hypertension, Diabetes Mellitus Type 2, and Anemia presents to ED c/o chest pain x 6 hours. So reports headache and dizziness. Patient also reports vaginal bleeding x 5 months with pelvic pain and states that she has a history of uterine cysts. No other complaints. ROS: All negative except as documented in HPI. Physical Exam: General: Alert and oriented. Appears anxious. High BP noted. Eyes: Conjunctivae and lids clear. EOMI. PERRL. ENT: No nasal congestion. Neck: Supple. No carotid bruit. No JVD. Heart: Sinus tachycardia noted. Lungs: No respiratory distress. Good air movement. No rhonchi, wheezing, rales. Chest: No tenderness. Abdomen: Soft with equivocal lower abdominal tenderness. Normal bowel sounds. No distension. No rebound or guarding. Back: No CVA tenderness. Legs: No clubbing, cyanosis, edema. Skin: Warm and dry. Neuro: Alert and oriented X 3. Cranial Nerves II-XII grossly intact. No peripheral motor deficits. I reviewed all diagnostic test results. My interpretation of the EKG is sinus rhythm with no acute ST?T changes. My interpretation of the chest x-ray is NAD. My review of the head CT report is NAD. My review of the chest/abdomen/pelvis CT report is enlarged uterus. My review of the transvaginal US report is large uterine fundal mass. Blood tests and urine tests unremarkable. At this point, diagnoses include hypertension and uterine fibroid and anxiety. Treatment here included Acetaminophen/Codeine Phosphate, Ketorolac Tromethamine, Metoprolol Tartrate, Ondansetron HCl Significant improvement noted. Recommended more outpatient workup. Based on my best medical judgment, made decision no further evaluation or treatment indicated at this time. Patient understands and agrees to the discharge instructions customized and printed, see below. Discharge instructions from Dr. Vazquez: 1. After extensive evaluation, there is no life-threatening condition.? Such as stroke or brain tumor or heart attack or pneumothorax (collapsed lung). 2. Your symptoms may be due to underlying stress or anxiety or nerves.? This is fairly common. And you have high BP. And you have fibroid which is noncancerous tumor in your uterus. 3. Take Xanax as needed for anxiety. Take metoprolol 100 mg every day. You will live longer with lower BP and slower heart rate. Zofran for nausea/vomiting. For good hydration, increase oral fluid and maintain clear urine. If dark or yellow, increase oral fluid. Toradol and Tylenol with codeine for pain. 4. See a private doctor on 06/20/2024 for recheck and further care. To make sure there is no serious underlying heart condition, ask to help you get more tests for your heart that cannot be done here in the ER.? Such as Holter Monitor (cardiac monitoring at home from a day to even a month), heart stress test (on treadmill or with medication), echocardiogram (imaging of your heart structures), heart catherization (checking for blockages in your heart arteries), and a referral to see a Accountant Bookkeeper. Ask for help with referral to see director of enterprise applications. Who will help with your fibroid. Ask to review all test results and official radiology reports, to make sure you receive all necessary follow-ups and monitoring. 5. Seek immediate medical care with worsening or with any concerns.?? Arnol Vazquez MD Related Data Home Medications ?Medication ?Instructions ?Recorded ?Confirmed metformin 1,000 mg tablet 1,000 mg PO QDAY 11/26/22 05/23/24 semaglutide 7 mg tablet (Rybelsus) 7 mg PO QAM 11/27/22 05/23/24 Previous Rx's ?Medication ?Instructions ?Recorded docusate sodium 100 mg capsule 100 mg PO BID #40 caps 11/27/22 (Colace) hydrocodone 5 mg-acetaminophen 325 1 tab PO Q6H PRN pain (scale score 11/27/22 mg tablet 7-10) #20 tabs ibuprofen 600 mg tablet 600 mg PO Q8H PRN pain (scale 11/27/22 score 4-6) #15 tabs ibuprofen 600 mg tablet 600 mg PO QID PRN fever or pain 03/21/24 #30 tabs acetaminophen 300 mg-codeine 30 mg 2 tab PO Q8H PRN pain #20 tabs 06/17/24 tablet alprazolam 0.25 mg tablet (Xanax) 0.25 mg PO BID PRN anxiety #10 tabs 06/17/24 ketorolac 10 mg tablet 10 mg PO Q8H PRN pain 5 days #10 06/17/24 tabs metoprolol succinate 100 mg 100 mg PO .bedtime #30 tabs 06/17/24 tablet,extended release 24 hr ondansetron 4 mg disintegrating 4 mg PO TID PRN nausea and 06/17/24 tablet vomiting 30 days #10 tabs Allergies Allergy/AdvReac Type Severity Reaction Status Date / Time No Known Allergies Allergy Verified 06/16/24 19:44 Review of Systems Review of Systems Systems Reviewed: All systems reviewed, normal except as documented Narrative Review of Systems: Refer to HPI above. Past Medical History Past Medical History CARDIAC: Positive Hypertension GASTROINTESTINAL: Positive Gastrointestinal Disorders REPRODUCTIVE: Positive Previous Pregnancies ENDOCRINE: Positive Endocrine Disorders and Diabetes Mellitus Type 2 HEMATOLOGIC: Positive Blood Disorders and Anemia OTHER HISTORY: Positive Chicken Pox Surgical History SURGICAL: Positive Tubal Ligation and Section (x3) ED Exam Narrative Physical exam: Refer to HPI above. Course Quality Measures none Orders Category Date Time Status EKG (ED ONLY) *Do not use* NOW Care 06/16/24 19:[address] chest abdomen pelvis wo Stat Exams 06/16/24 21:[address] head/brain wo con Stat Exams 06/16/24 21:06 Completed EKG (ED Only) Stat Exams 06/16/24 19:46 Draft US transvaginal Stat Exams 06/16/24 21:11 Completed XR chest 1V portable Stat Exams 06/16/24 21:06 Completed Amylase Stat Lab 06/16/24 22:23 Completed BNP [B-Type Natriuretic Peptide] Stat Lab 06/16/24 22:23 Completed Bilirubin,Direct Stat Lab 06/16/24 22:23 Completed CBC Stat Lab 06/16/24 22:23 Completed CMP [Comprehensive Metabolic Panel] Stat Lab 06/16/24 22:23 Completed Free T4 (Free Thyroxine) Stat Lab 06/16/24 22:23 Completed HCG,Qualitative Serum Stat Lab 06/16/24 22:23 Completed Lipase Stat Lab 06/16/24 22:23 Completed Magnesium Stat Lab 06/16/24 22:23 Completed TSH [Thyroid Stimulating Hormone] Stat Lab 06/16/24 22:23 Completed Troponin I Stat Lab 06/16/24 22:23 Completed ACETAMINOPHEN w/COD 300-30 [Tylenol w/Cod #3] Med 06/16/24 21:08 Discontinued 2 tab PO X1 ONE Ketorolac Inj [Toradol Inj] Med 06/16/24 22:05 Discontinued 60 mg IM X1 ONE Metoprolol Tartrate [Lopressor] Med 06/16/24 21:39 Discontinued 50 mg PO X1 ONE Ondansetron Odt [Zofran Odt] Med 06/16/24 21:08 Discontinued 4 mg PO X1 ONE Vital Signs Vital signs: Vital Signs Temperature 98.3 F 06/16/24 20:12 Pulse Rate 112 H 06/16/24 20:12 Respiratory Rate 20 06/16/24 20:12 Blood Pressure 168/84 H 06/16/24 20:12 Pulse Oximetry (%) 99 06/16/24 20:12 Oxygen Delivery Method Room Air 06/16/24 20:12 Chest Pain MDM Narrative MDM Narrative:: Scribe Attestation: Kaylan Harris am scribing for and in the presence of Dr. Vazquez. Provider Notation: Although this document has been carefully reviewed, there may still be some phonetic and other typographical errors. These errors are purely grammatical due to imperfections in the software program and should not be construed in any way to compromise the substance of the patient's medical care during this visit. Patient data External records reviewed:: [facility] previous records (Prior ED records reviewed from 05/19/24. Patient was seen for DUB.) Clinical information provided by:: patient Social determinants that could affect healthcare access:: none Patient has the following chronic illnesses:: Hypertension, Gastrointestinal Disorders, Diabetes Mellitus Type 2, and Anemia How is presenting disease/condition affected by chronic disease/condition?: exacerbated by Evaluation data The following diagnostics were reviewed and interpreted by me:: EKG tracing(s) (My interpretation of the EKG is: Sinus rhythm (102 bpm) with nonspecific ST-T changes. Arnol Vazquez MD) Lab and/or radiology exams considered but not ordered:: None Interpretation Summary: Hypertension and uterine fibroid and anxiety Medications / Prescriptions Medications or Prescriptions considered but not ordered:: None Medication administrations:: Medication Administration History Discontinued Medications Acetaminophen/Codeine Phosphate (Acetaminophen W/Cod 300-30 Tablet) 2 tab PO X1 ONE Stop: 06/16/24 21:09 Last Admin: 06/16/24 21:41 Dose: Not Given Documented By: GODWIN Non-Admin Reason: Patient Refused Ketorolac Tromethamine (Ketorolac Inj 60 Mg/2 Ml Vial) 60 mg IM X1 ONE Stop: 06/16/24 22:06 Metoprolol Tartrate (Metoprolol Tartrate 25 Mg Tablet) 50 mg PO X1 ONE Stop: 06/16/24 21:40 Last Admin: 06/16/24 21:46 Dose: 50 mg Documented By: GODWIN Ondansetron HCl (Ondansetron Odt 4 Mg Tabrap) 4 mg PO X1 ONE; Protocol Stop: 06/16/24 21:09 Last Admin: 06/16/24 21:41 Dose: Not Given Documented By: GODWIN Non-Admin Reason: Patient Refused Acetaminophen/Codeine Phosphate, Ketorolac Tromethamine, Metoprolol Tartrate, Ondansetron HClAcetaminophen/Codeine Phosphate, Ketorolac Tromethamine, Metoprolol Tartrate, Ondansetron HCl Consultations Consultation(s) initiated? (list below): No Diagnosis Chest Pain Differential Diagnosis: pneumothorax, stable angina, unstable angina pectoris, atypical chest pain, st elevation myocardial infarction, costochondritis, chest pain, biliary colic and other (CVA, brain tumor, anxiety, fibroids) Most likely diagnosis given after review of the tests above:: Fibroid, chest pain, hypertension Admission Indicated Admission indicated?: not indicated Explain why admission is indicated or not indicated:: With significant improvement, there was no indication for admission. Admission Request Was there a request for admission?: No Disposition Plan Disposition Plan: Discharge Discharge Attestation Discharge Attestation: The patient and all family members were given an opportunity to ask questions and understood the discharge instructions. Discharge instructions specifically effects, indications for sooner follow up or return to the emergency department, and the expected course of current diagnosis. Patient condition: Stable Discharge Plan Plan Patient Disposition: HOME (Self Care) Prescriptions/Referrals Prescriptions/Med Rec: New metoprolol succinate 100 mg tablet extended release 24 hr 100 mg PO .bedtime Qty: 30 0RF acetaminophen-codeine 300-30 mg tablet 2 tab PO Q8H MDD 6 PRN (Reason: pain) Qty: 20 0RF ketorolac 10 mg tablet 10 mg PO Q8H PRN (Reason: pain) 5 Days Qty: 10 0RF alprazolam [Xanax] 0.25 mg tablet 0.25 mg PO BID PRN (Reason: anxiety) Qty: 10 0RF ondansetron 4 mg tablet,disintegrating 4 mg PO TID PRN (Reason: nausea and vomiting) 30 Days Qty: 10 0RF No Action metformin 1,000 mg Tablet 1,000 mg PO QDAY Rybelsus 7 mg tablet 7 mg PO QAM Patient Comments: TOME BROCK TABLETA TODOS LOS D 30 MINUTOS ANTES DE LA PRIMERA COMIDA DEL LUIS E CON 4 OZ DE AGUA docusate sodium [Colace] 100 mg capsule 100 mg PO BID Qty: 40 0RF hydrocodone-acetaminophen 5-325 mg tablet 1 tab PO Q6H MDD 4 PRN (Reason: pain (scale score 7-10)) Qty: 20 0RF ibuprofen 600 mg tablet 600 mg PO Q8H PRN (Reason: pain (scale score 4-6)) Qty: 15 0RF ibuprofen 600 mg tablet 600 mg PO QID PRN (Reason: fever or pain) Qty: 30 0RF Referrals: No Primary/Family,Physician [Primary Care Provider] - In 1 week Problem List Clinical Impression: Fibroid, Chest pain, Hypertension Patient/Caregiver Discharge Instructions Discharge Activity: activity as tolerated Education Materials: ED Anxiety Reaction, ED Chest Pain, Uncertain Cause, ED Hypertension, New (Begin Treatment), ED Uterine Fibroids Additional Instructions: Discharge instructions from Dr. Vazquez: 1. After extensive evaluation, there is no life-threatening condition.? Such as stroke or brain tumor or heart attack or pneumothorax (collapsed lung). 2. Your symptoms may be due to underlying stress or anxiety or nerves.? This is fairly common. And you have high BP. And you have fibroid which is noncancerous tumor in your uterus. 3. Take Xanax as needed for anxiety. Take metoprolol 100 mg every day. You will live longer with lower BP and slower heart rate. Zofran for nausea/vomiting. For good hydration, increase oral fluid and maintain clear urine. If dark or yellow, increase oral fluid. Toradol and Tylenol with codeine for pain. 4. See a private doctor on 06/20/2024 for recheck and further care. To make sure there is no serious underlying heart condition, ask to help you get more tests for your heart that cannot be done here in the ER.? Such as Holter Monitor (cardiac monitoring at home from a day to even a month), heart stress test (on treadmill or with medication), echocardiogram (imaging of your heart structures), heart catherization (checking for blockages in your heart arteries), and a referral to see a Accountant Bookkeeper. Ask for help with referral to see director of enterprise applications. Who will help with your fibroid. Ask to review all test results and official radiology reports, to make sure you receive all necessary follow-ups and monitoring. 5. Seek immediate medical care with worsening or with any concerns.?? Instrucciones de rose del Dr. Vazquez: 1. Tras brock evaluaci?n exhaustiva, no se observa ninguna afecci?n que ponga en peligro mendoza guillermo, ramesh un derrame cerebral, un tumor cerebral, un ataque card?aco o un neumot?rax (colapso pulmonar). 2. Mala s?ntomas pueden deberse a estr?s, ansiedad o nerviosismo subyacentes. [place] es bastante com?n. Adem?s, tiene la presi?n arterial rose y un fibroma, que es un tumor laura en el ?tero. 3. Canones Xanax seg?n sea necesario para la ansiedad. Canones metoprolol 100 mg todos los d?as. Vivir? m?s tiempo con la presi?n arterial baja y la frecuencia card?fidel m?s lenta. Zofran para las n?useas y los v?mitos. Para brock buena hidrataci?n, aumente la ingesta de l?quidos y mantenga la orina tushar. Si la orina es oscura o amarilla, aumente la ingesta de l?quidos. Toradol y Tylenol con code?na para el dolor. 4. Consulte con un m?dico particular el 20/06/2024 para brock nueva revisi?n y atenci?n adicional. Para asegurarse de que no haya brock afecci?n card?fidel subyacente grave, solicite ayuda para realizar m?s pruebas card?acas que no se pueden realizar en urgencias. Por ejemplo, un monitor Holter (monitorizaci?n card?fidel en casa desde un d?a hasta un mes), brock prueba de esfuerzo (en cinta o con medicaci?n), un ecocardiograma (im?genes de las estructuras card?acas), un cateterismo card?aco (para detectar obstrucciones en las arterias card?acas) y brock derivaci?n a un cardi?logo. Solicite ayuda para que la deriven a un ginec?logo, quien le ayudar? con mendoza fibroma. Solicite la revisi?n de todos los resultados de las pruebas y los informes radiol?gicos oficiales para asegurarse de recibir todos los seguimientos y la monitorizaci?n necesarios. 5. Busque atenci?n m?dica inmediata si presenta empeoramiento o si tiene alguna inquietud. Print Language: Cambodian Stand Alone Forms: Guillermina Award Info., Patient Portal Info Letter
--- NOTE | 2024-06-16 21:06 | XR_ITS ---
Examination: CT brain head without contrast. 2-D sagittal coronal reconstructions Date and time of exam:June 16, 2024 10:20 PM Indications: Dizziness today CTDI: vol (mGy):49.9 DLP: (mGycm):944 Technique: Multiple CT axial sections of the brain have been obtained, 5 mm slice thickness. Contrast has not been administered. 2-D sagittal, coronal reconstructions have been obtained Low dose protocols were performed. One or more of the following dose reduction techniques were used; automated exposure control, adjustment of the mA and/or KV according to patient size, use of iterative reconstruction technique. Findings: No significant ventricular enlargement. Intra-axial or extra-axial hemorrhage density is not seen. No mass effect or midline shift Basal cisterns are not remarkable. Fourth ventricle is midline. Cranial vault intact. Impression: Negative for acute hemorrhage, mass effect or midline shift Advise clinical correlation follow-up accordingly
--- NOTE | 2024-06-16 21:06 | XR_ITS ---
Examination: PA chest single view Technique: Upright PA chest single view Exam date and time: June 16, 2024 2116 hrs. Indications: Shortness of breath chest pain today. Findings: Normal heart size Lungs are clear. The osseous structures are intact Impression: No active disease
--- NOTE | 2024-06-16 21:06 | XR_ITS ---
Examination: CT chest, without intravenous contrast. CT abdomen, without intravenous contrast. CT pelvis, without intravenous contrast. 2-D sagittal and coronal reconstructions. 3-D reconstructions. Date and time of exam:June 16, 2024 1050 hrs. Indications: Mid abdominal pain beginning 2 days ago CTDI vol (mgy) 13.3 DLP (MGycm)944 Technique: Multiple CT images, 3.0 mm slice thickness, obtained chest, abdomen, pelvis, with the high-resolution 64 slice scanner.. Sagittal and coronal 2-D reconstructions are obtained. 3-D reconstructions Low dose protocols were performed. One or more of the following dose reduction techniques were used; automated exposure control, adjustment of the mA and/or KV according to patient size, use of iterative reconstruction technique. Findings: Thoracic aorta pulmonary arteries intact No paratracheal tracheobronchial or bronchopulmonary adenopathy No pneumonia or pulmonary edema or pleural disease 2 mm pulmonary nodule right lower lobe image 165 No liver or splenic lesion Contracted gallbladder No pancreatic or adrenal mass No renal or ureteral calculi, no hydronephrosis 20 mm fat-containing umbilical hernia Normal appendix Anteverted uterus with diffuse enlarged fundus Urinary bladder intact Impression: No mediastinal lymphadenopathy No pneumonia, pulmonary edema or pleural disease 2 mm pulmonary nodule right lower lobe No renal or ureteral calculi, no hydronephrosis Normal appendix 20 mm fat-containing umbilical hernia Please see the pelvic sonogram report today indicating large uterine fundal mass, likely fibroid degeneration
--- NOTE | 2024-06-16 21:11 | XR_ITS ---
Examination: Transvaginal ultrasound of the pelvis, complete Technique: Transvaginal sonographic images pelvis performed using desir scale imaging Exam date and time: May, 0959 hrs. Indications: Onset pelvic pain today Findings: Uterus 13.8 cm with 6.8 x 5.9 x 6.6 cm right uterine fundal mass Ovaries obscured by bowel gas Impression: 6.8 x 5.9 x 6.6 cm right uterine fundal mass, likely fibroid degeneration Recommend 6 month follow-up transvaginal pelvic sonography.
[2024-06-16 21:46] VITALS: BP 168/84; PULSE 112
[2024-06-16] MEDS: METOPROLOL TARTRATE 25 MG TABLET 50 MG PO (21:46)
[2024-06-16 22:37] LABS: Basophils % (Auto) 0 % (0-2.5); Eosinophils % (Auto) 0 % (0-10); Hematocrit 35.2 % (36.0-46.0); Hemoglobin 11.8 g/dL (12.0-16.0); Immature Granulocytes % (Auto) 0 % (0-0); Immature Granulocytes Auto 0.03 Thou/mm3 (0.00-0.00); Lymphocytes % (Auto) 17 % (10-50); Mean Corpuscular HGB Conc 33.5 g/dl (31.0-37.0); Mean Corpuscular Hemoglobin 28.7 pg (25.0-35.0); Mean Corpuscular Volume 86 fL (80-100); Monocytes # (Auto) 0.6 Thou/mm3 (0.0-0.8); Monocytes % (Auto) 5 % (0-12); Neutrophils % (Auto) 77 % (37-80); Nucleated Red Blood Cell % 0 /100 WBC (0); Platelet Count 303 Thou/mm3 (140-440); RDW Standard Deviation 40.8 fL (36.4-46.3); Red Blood Count 4.11 Miln/mm3 (4.00-5.20); White Blood Count 11.7 Thou/mm3 (3.6-11.0)
[2024-06-16 23:03] LABS: HCG,Qualitative Serum Negative
[2024-06-16 23:11] LABS: B-Type Natriuretic Peptide 23 pg/mL (0-100)
[2024-06-16 23:51] LABS: Alanine Aminotransferase 14 U/L (10-49); Albumin, Serum 4.4 gm/dL (3.5-5.0); Albumin/Globulin Ratio 1.8 (1.2-2.2); Alkaline Phosphatase 60 U/L (46-116); Amylase 53 U/L (30-118); Anion Gap 10 (7-16); Aspartate Amino Transferase 16 U/L (0-34); BUN/Creatinine Ratio 19 Ratio (12-20); Bilirubin,Direct 0.1 mg/dL (0.0-0.3); Bilirubin,Total 0.4 mg/dL (0.3-1.2); Blood Urea Nitrogen 13 mg/dL (9-23); Calcium 9.4 mg/dL (8.3-10.6); Calcium (Corrected) 9.4 mg/dL (8.5-10.1); Carbon Dioxide 22.6 mMol/L (20.0-31.0); Chloride 107 mMol/L (98-107); Creatinine (Component) 0.7 mg/dL (0.6-1.3); Estimated Creatinine Clearance 100.8 mL/min (>60); Free T4 (Free Thyroxine) 1.13 ng/dL (0.89-1.76); Globulin 2.4 gm/dL (2.3-3.5); Glucose 158 mg/dL (74-106); Lipase 33 U/L (12-53); Osmolality,Calculated 282 (275-295); Potassium 4.2 mMol/L (3.4-5.1); Sodium 140 mMol/L (136-145); Thyroid Stimulating Hormone 2.82 uIU/mL (0.55-4.78); Total Protein 6.8 gm/dL (5.7-8.2); Troponin I < 0.002 ng/mL (0.0-0.045); eGFR > 60 See Note
[2024-06-17 00:20] VITALS: BP 127/84; PULSE 86; RESP 16; TEMP 37.3; O2SAT 99
== END 2024-06-17 00:28 | disposition home or self-care (01) ==
PROVIDERS: Emergency Provider Emergency Medicine
DX: I10 Essential (primary) hypertension (principal); D25.9 Leiomyoma of uterus, unspecified; R06.02 Shortness of breath; R07.9 Chest pain, unspecified; R42 Dizziness and giddiness
CPT/HCPCS: 36415; 70450; 71045; 71250; 74176; 76830; 80053; 81001; 81025; 82150; 82248; 83690; 83735; 83880; 84439; 84443; 84484; 84703; 85025; 93005; 99284; A9270

== ENCOUNTER 2024-09-08 07:20 | Inpatient (IN) | payer MEDICAID, SELFPAY ==
--- NOTE | 2024-09-06 11:45 | EKG_ITS ---
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
[2024-09-06 11:48] VITALS: BMI 32.1
[2024-09-06 12:54] LABS: Basophils # (Auto) 0.0 Thou/mm3 (0.0-0.2); Basophils % (Auto) 0 % (0-2.5); Eosinophils # (Auto) 0.3 Thou/mm3 (0.0-0.5); Eosinophils % (Auto) 4 % (0-10); Hematocrit 37.3 % (36.0-46.0); Hemoglobin 12.6 g/dL (12.0-16.0); Immature Granulocytes Auto 0.01 Thou/mm3 (0.00-0.00); Lymphocytes # (Auto) 2.7 Thou/mm3 (1.0-4.8); Lymphocytes % (Auto) 39 % (10-50); Mean Corpuscular HGB Conc 33.8 g/dl (31.0-37.0); Mean Corpuscular Hemoglobin 27.3 pg (25.0-35.0); Mean Corpuscular Volume 81 fL (80-100); Monocytes # (Auto) 0.4 Thou/mm3 (0.0-0.8); Monocytes % (Auto) 6 % (0-12); Neutrophils # (Auto) 3.4 Thou/mm3 (1.8-7.7); Neutrophils % (Auto) 50 % (37-80); Nucleated Red Blood Cell # 0.00 Thou/mm3 (0.00-0.00); Nucleated Red Blood Cell % 0 /100 WBC (0); Platelet Count 270 Thou/mm3 (140-440); RDW Standard Deviation 36.3 fL (36.4-46.3); Red Blood Count 4.61 Miln/mm3 (4.00-5.20); White Blood Count 6.7 Thou/mm3 (3.6-11.0)
[2024-09-06 13:03] LABS: HCG,Qualitative Serum Negative
[2024-09-06 13:04] LABS: Alanine Aminotransferase 34 U/L (10-49); Albumin, Serum 4.5 gm/dL (3.5-5.0); Albumin/Globulin Ratio 1.7 (1.2-2.2); Alkaline Phosphatase 74 U/L (46-116); Anion Gap 12 (7-16); Aspartate Amino Transferase 25 U/L (0-34); BUN/Creatinine Ratio 10 Ratio (12-20); Bilirubin,Total 0.8 mg/dL (0.3-1.2); Blood Urea Nitrogen 8 mg/dL (9-23); Calcium 9.7 mg/dL (8.3-10.6); Calcium (Corrected) 9.7 mg/dL (8.5-10.1); Carbon Dioxide 27.9 mMol/L (20.0-31.0); Chloride 101 mMol/L (98-107); Creatinine (Component) 0.8 mg/dL (0.6-1.3); Estimated Creatinine Clearance 86.1 mL/min (>60); Globulin 2.6 gm/dL (2.3-3.5); Glucose 209 mg/dL (74-106); Osmolality,Calculated 285 (275-295); Potassium 4.3 mMol/L (3.4-5.1); Sodium 141 mMol/L (136-145); Total Protein 7.1 gm/dL (5.7-8.2); eGFR > 60 See Note
[2024-09-08] VITALS (17 sets, daily range): BP systolic 117–147; BP diastolic 71–93; PULSE 70–123; RESP 12–98; TEMP 36.6–36.9; O2SAT 94–98; BMI 32.1
--- NOTE | 2024-09-08 08:15 | ESHP_ITS ---
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 She has required multiple ER visits due to heavy bleeding, which she describes as requiring continuous liner use and accompanied by a strong odor. An ultrasound performed on May 19 in the ER revealed a fibroid. She reports progressive pain and worsening bleeding, unresponsive to prior medical therapy. 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 Denies fever, weight loss, chest pain, or urinary symptoms. Ultrasound (05/19/2024): 12.4 cm uterus, 0.8 cm endometrial stripe, 6.4 x 5.1 x 5.2 cm fundal fibroid with degenerative changes Review of Systems Review of Systems Systems Reviewed: All systems reviewed, normal except as documented Meds Home Medications and Allergies Home Medications ?Medication ?Instructions ?Recorded ?Confirmed ?Type metformin 1,000 mg tablet 1,000 mg PO BID 11/26/2212/24 History semaglutide 7 mg tablet (Rybelsus) 7 mg PO QAM 3 09/08/24 History multivitamin (Daily Multi-Vitamin 1 tab PO QAM 5 09/08/24 History tablet) Allergies Allergy/AdvReac Type Severity Reaction Status Date / Time No Known Allergies Allergy Verified 09/08/24 08:00 Exam - CASH SALES AUDIT CLERK Constitutional Constitutional: no acute distress Routine HEENT Exam Head: Present normocephalic and atraumatic Eye: Present EOMI and PERRL ENT: Present mucous membranes moist Routine Neck Exam Neck: Present supple and trachea midline Routine Respiratory Exam Respiratory: Present chest non-tender, lungs clear, normal breath sounds and no resp distress Routine Cardiovascular Exam Cardiovascular: Present RRR Routine Abdominal Exam Abdominal: Present soft and normoactive bowel sounds Routine Extremities Exam Extremities: Present full ROM Routine Skin Exam Skin: Present intact and dry Routine Neurological Exam Neurological: Present alert, oriented X3 and CN II-XII intact Routine Psychiatric Exam Psychiatric: Present normal affect and normal thought process CASH SALES AUDIT CLERK - Results Labs 09/06/24 12:06 09/06/24 12:06 Assessment and Plan Assessment and plan (1) Intramural leiomyoma of uterus: Status: Acute Assessment and plan: Plan: * Proceed with Total Abdominal Hysterectomy today for definitive management * Continue perioperative diabetes monitoring * Pre-op labs completed * Provide post-op educational resources regarding recovery and expectations * Continue routine VTE prophylaxis and surgical protocols * Discharge planning based on recovery and social support needs Treatment Alternatives Reviewed: * First Tier: Medical therapy (IUDs, OCPs, TXA, oral progestins) and hysteroscopic resection * Second Tier: GnRH analogs/antagonists (elagolix, relugolix), [place] * Third Tier: Myomectomy, Focused Ultrasound, or watchful waiting * Definitive Option: Hysterectomy ? chosen by patient after shared decision- making Risks & Benefits of Hysterectomy Discussed: * Benefits: Permanent symptom relief, definitive treatment of fibroids * Risks: Anesthesia, bleeding, infection, injury to surrounding structures * Patient Concerns: Nervousness acknowledged; further educational material provided After reviewing the risks benefits and alternatives patient elected to proceed with the surgery (2) Dysfunctional uterine bleeding: Status: Acute Quality Measures Quality Measures VTE prophylaxis
--- NOTE | 2024-09-08 08:15 | PD.GYNHP ---
Documentation for date of: 09/08/24 BOTTOM LIQUOR ATTENDANT - HPI History of Present Illness History of present illness: The patient presents today for scheduled total abdominal hysterectomy due to persistent abnormal uterine bleeding that began on February 22. She has required multiple ER visits due to heavy bleeding, which she describes as requiring continuous liner use and accompanied by a strong odor. An ultrasound performed on May 19 in the ER revealed a fibroid. She reports progressive pain and worsening bleeding, unresponsive to prior medical therapy. 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 Denies fever, weight loss, chest pain, or urinary symptoms. Ultrasound (05/19/2024): 12.4 cm uterus, 0.8 cm endometrial stripe, 6.4 x 5.1 x 5.2 cm fundal fibroid with degenerative changes Review of Systems Review of Systems Systems Reviewed: All systems reviewed, normal except as documented Meds Home Medications and Allergies Home Medications ?Medication ?Instructions ?Recorded ?Confirmed ?Type metformin 1,000 mg tablet 1,000 mg PO BID 11/26/22 09/08/24 History semaglutide 7 mg tablet (Rybelsus) 7 mg PO QAM 11/27/22 09/08/24 History multivitamin (Daily Multi-Vitamin 1 tab PO QAM 09/06/24 09/08/24 History tablet) Allergies Allergy/AdvReac Type Severity Reaction Status Date / Time No Known Allergies Allergy Verified 09/08/24 08:00 Exam - BOTTOM LIQUOR ATTENDANT Constitutional Constitutional: no acute distress Routine HEENT Exam Head: Present normocephalic and atraumatic Eye: Present EOMI and PERRL ENT: Present mucous membranes moist Routine Neck Exam Neck: Present supple and trachea midline Routine Respiratory Exam Respiratory: Present chest non-tender, lungs clear, normal breath sounds and no resp distress Routine Cardiovascular Exam Cardiovascular: Present RRR Routine Abdominal Exam Abdominal: Present soft and normoactive bowel sounds Routine Extremities Exam Extremities: Present full ROM Routine Skin Exam Skin: Present intact and dry Routine Neurological Exam Neurological: Present alert, oriented X3 and CN II-XII intact Routine Psychiatric Exam Psychiatric: Present normal affect and normal thought process BOTTOM LIQUOR ATTENDANT - Results Labs 09/06/24 12:06 09/06/24 12:06 Assessment and Plan Assessment and plan (1) Intramural leiomyoma of uterus: Status: Acute Assessment and plan: Plan: Proceed with Total Abdominal Hysterectomy today for definitive management Continue perioperative diabetes monitoring Pre-op labs completed Provide post-op educational resources regarding recovery and expectations Continue routine VTE prophylaxis and surgical protocols Discharge planning based on recovery and social support needs Treatment Alternatives Reviewed: First Tier: Medical therapy (IUDs, OCPs, TXA, oral progestins) and hysteroscopic resection Second Tier: GnRH analogs/antagonists (elagolix, relugolix), UAE Third Tier: Myomectomy, Focused Ultrasound, or watchful waiting Definitive Option: Hysterectomy ? chosen by patient after shared decision-making Risks & Benefits of Hysterectomy Discussed: Benefits: Permanent symptom relief, definitive treatment of fibroids Risks: Anesthesia, bleeding, infection, injury to surrounding structures Patient Concerns: Nervousness acknowledged; further educational material provided After reviewing the risks benefits and alternatives patient elected to proceed with the surgery (2) Dysfunctional uterine bleeding: Status: Acute Quality Measures Quality Measures VTE prophylaxis
--- NOTE | 2024-09-08 11:11 | PD.GYNPROC ---
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 Identity was confirmed by double identifiers and she was placed on the operating table.? General anesthesia was administered and the patient was secured and positioned in the supine position.? The abdomen and perineum were prepped in the usual sterile fashion, a Gill catheter was placed to continuous drainage and sterile drapes were applied.? A timeout procedure was completed. A Pfannenstiel skin incision was made with a scalpel and incision was carried down through the subcutaneous fat up to the rectus fascia.? Rectus fascia was incised on either side of the midline and the fascial incisions were extended bilaterally using Manriquez scissors.? The rectus fascia was now grasped using a pair of Concha's clamps and dissected off the anterior surface of the rectus muscle.? The same procedure was repeated on the inferior aspect.? The rectus bellies were now in the midline and the peritoneum was identified and entered bluntly.? The peritoneal opening was gently stretched to create adequate access into the pelvic cavity.? Paul O-ring retractor was placed and the bowel was packed out of the operative field.? The uterus was grasped using a double-tooth tenaculum.? Significant amount of bladder adhesion was noted and about 20 minutes of dissection was performed to divide the bladder adhesion to gain access to the uterovesical peritoneum.? The uterus was placed under traction and dissection was started on the right side.? The utero-ovarian ligament was was divided.? The fallopian tube was dissected off separately.? The round ligament was now divided and the anterior and posterior leaves of the broad ligament was .? The anterior leaf was dissected up to the bladder reflection to create the bladder flap.? The posterior leaf was dissected down all the way to the uterosacral ligament.? Subsequent bites were taken down the size of the uterus until the uterine artery was skeletonized, occluded and divided and the cervix was reached.? The same procedure was repeated on the contralateral side.? Once the level of the cervix was reached a pair of Shanell clamps were placed across the cervix and the uterus was amputated and handed over for pathological exam.? The vaginal angles were tagged using a pair of 0 Vicryl sutures.? The vaginal cuff was closed using 0 Vicryl in a running fashion.? The angles were tied together to reinforce the uterosacral ligaments.? The cuff was copiously irrigated and adequate hemostasis was noted.? A layer of Surgicel was placed for adequate hemostasis.? All instruments were now withdrawn.? The bowel packing was removed.? The Paul retractor was removed.?The peritoneum was now closed using 2-0 Vicryl, the rectus muscles were reapproximated using 3-0 Vicryl.? The rectus fascia was closed using 0 Vicryl in a running fashion.? The subcutaneous layer was copiously irrigated.? The subcutaneous fat was closed using 3 0 plain and the skin was closed using dilan.? The skin was thoroughly cleaned and a sterile pressure dressing was applied.? The patient was undraped, general anesthesia was reversed and she was transferred to the recovery room in a stable and awake condition. Patient tolerated the entire procedure well.? No acute complications were encountered during the procedure.? All instrument, sponge and lap counts were correct x2 Specimen: uterus Estimated blood loss (ml): 150 Complications: none Surgical staff Operation Date: 09/08/24 09:30 Case Staff Anesthesiologist: Adi Benitez RNgraduate fellow: Holly Abraham Diagnosis Discharge Diagnosis (1) Intramural leiomyoma of uterus: Status: Acute (2) Dysfunctional uterine bleeding: Status: Acute Problem List Completed Was Problem List Reviewed/Reconciled?: Yes
--- NOTE | 2024-09-08 11:23 | SUR.PHASEI ---
pt received from OR in recovery bay 2. pt asleep but responds to voice, breathing unlabored on 4l nc. v/s stable. pt dressing to abd cdi. report received from Odalis AVILA and Dr. Benitez.
[2024-09-08] MEDS: SODIUM CHLORIDE 0.9% 1000 ML 1,000 ML 200 ML IV ×3 (12:17→23:05)
--- NOTE | 2024-09-08 12:30 | SUR.PHASEII ---
1230: dressing to abdomen clean, dry and intact.
--- NOTE | 2024-09-08 12:30 | SUR.PHASEII ---
1230: received report from AUSTIN Snyder.
--- NOTE | 2024-09-08 12:44 | SUR.PHASEII ---
1230: pt sleeping at this time. no s/s of resp. distress or discomfort. no s/s of pain or discomfort.
--- NOTE | 2024-09-08 12:45 | SUR.PHASEII ---
1245: pt awake and open eyes. able to verbalizes pain to abdomen. mother at the bedside. moyer cath in place clean and intact with yellow color urine.
[2024-09-08] MEDS: fentaNYL CIT INJ 50 mCg/ML AMP 2ML IVP (12:52)
--- NOTE | 2024-09-08 13:47 | SUR.PHASEII ---
Pt asleep but responds to voice, breathing unlabored on room air. v/s stable. pt dressing to abd cdi. report called to Leandro AVILA. pt will be transferred to room at this time.
[2024-09-08] MEDS: HYDROmorphone INJ 2 MG/ML VIAL 0.5 MG IVP (14:25)
[2024-09-08] MEDS: ACETAMINOPHEN IVPB 1,000 MG/100 ML VIAL 250 MG IV ×2 (17:14→23:05)
[2024-09-08] MEDS: KETOROLAC INJ 30 MG/ML VIAL IVP (20:40)
[2024-09-09] VITALS (8 sets, daily range): BP systolic 121–137; BP diastolic 78–90; PULSE 88–102; RESP 17–98; TEMP 36.2–36.9; O2SAT 97–98; BMI 34.0
[2024-09-09] MEDS: ACETAMINOPHEN IVPB 1,000 MG/100 ML VIAL 250 MG IV (05:14)
[2024-09-09 06:18] LABS: Basophils # (Auto) 0.0 Thou/mm3 (0.0-0.2); Basophils % (Auto) 0 % (0-2.5); Eosinophils # (Auto) 0.0 Thou/mm3 (0.0-0.5); Eosinophils % (Auto) 0 % (0-10); Hematocrit 30.7 % (36.0-46.0); Hemoglobin 10.5 g/dL (12.0-16.0); Immature Granulocytes Auto 0.03 Thou/mm3 (0.00-0.00); Lymphocytes # (Auto) 2.8 Thou/mm3 (1.0-4.8); Lymphocytes % (Auto) 21 % (10-50); Mean Corpuscular HGB Conc 34.2 g/dl (31.0-37.0); Mean Corpuscular Hemoglobin 28.6 pg (25.0-35.0); Mean Corpuscular Volume 84 fL (80-100); Monocytes # (Auto) 0.9 Thou/mm3 (0.0-0.8); Monocytes % (Auto) 7 % (0-12); Neutrophils # (Auto) 9.2 Thou/mm3 (1.8-7.7); Neutrophils % (Auto) 71 % (37-80); Nucleated Red Blood Cell # 0.00 Thou/mm3 (0.00-0.00); Nucleated Red Blood Cell % 0 /100 WBC (0); Platelet Count 213 Thou/mm3 (140-440); RDW Standard Deviation 38.1 fL (36.4-46.3); Red Blood Count 3.67 Miln/mm3 (4.00-5.20); White Blood Count 13.0 Thou/mm3 (3.6-11.0)
[2024-09-09 07:06] LABS: Anion Gap 12 (7-16); BUN/Creatinine Ratio 13 Ratio (12-20); Blood Urea Nitrogen 9 mg/dL (9-23); Calcium 8.6 mg/dL (8.3-10.6); Carbon Dioxide 22.8 mMol/L (20.0-31.0); Chloride 107 mMol/L (98-107); Creatinine (Component) 0.7 mg/dL (0.6-1.3); Estimated Creatinine Clearance 101.4 mL/min (>60); Glucose 132 mg/dL (74-106); Osmolality,Calculated 283 (275-295); Potassium 3.6 mMol/L (3.4-5.1); Sodium 142 mMol/L (136-145); eGFR > 60 See Note
--- NOTE | 2024-09-09 08:44 | PC.SS ---
Initial assessment: This is 43-year old female admitted for [facility] [id number]. Patient is Slovenian speaking. Alert and oriented. Patient was able to confirm demographic information. Patient assigned her mother, Essence Felotn as her medical decision maker if necessary. Patient informs she lives at home with her children. Patient indicates she is independent with ADL's and denies the use of any DME. Patient informs her PCP is Haile Peng. Patient informs that she will return home upon discharge and has family to transport her home. Patient has no questions at this time. Patient was provided with community resource handout. D/c plan: Home Next of kin: MotherEssence
[2024-09-09] MEDS: DOCUSATE SOD 100 MG CAPSULE PO (09:27)
[2024-09-09] MEDS: MULTIVITAMINS TABLET 1 TAB PO (09:27)
--- NOTE | 2024-09-09 11:14 | PD.GYNPROG ---
Documentation for date of: 09/09/24 RISK AND INSURANCE MANAGER Subjective Subjective Interval history: Patient doing well this morning. Had some difficulty with pain management but is doing better after medication management of the chest Urine output is adequate, fingerstick blood glucose is within normal limits Passing flatus but denies having any bowel movements Denies any nausea or vomiting Exam Vital Signs Temp Pulse Resp BP Pulse Ox O2 Del Method O2 Flow Rate 97.1 F 88 19 131/78 H 98 Room Air 4 09/09/24 08:00 09/09/24 08:00 09/09/24 08:00 09/09/24 08:00 09/09/24 08:00 09/09/24 08:00 09/08/24 13:00 Constitutional Constitutional: no acute distress Routine HEENT Exam Head: Present normocephalic and atraumatic Eye: Present EOMI and PERRL ENT: Present mucous membranes moist Routine Neck Exam Neck: Present supple and trachea midline Routine Respiratory Exam Respiratory: Present chest non-tender, lungs clear, normal breath sounds and no resp distress Routine Cardiovascular Exam Cardiovascular: Present RRR Routine Abdominal Exam Abdominal: Present soft and normoactive bowel sounds Routine Extremities Exam Extremities: Present full ROM Routine Skin Exam Skin: Present intact and dry Routine Neurological Exam Neurological: Present alert, oriented X3 and CN II-XII intact Routine Psychiatric Exam Psychiatric: Present normal affect and normal thought process Urinary Catheter Management Cath placed during this visit: no RISK AND INSURANCE MANAGER - PN: Obj Data Labs 09/09/24 05:22 09/09/24 05:22 Labs: Laboratory Results - last 24 hr 09/09/24 05:22 WBC 13.0 H D RBC 3.67 L Hgb 10.5 L D Hct 30.7 L MCV 84 MCH 28.6 MCHC 34.2 RDW Std Deviation 38.1 Plt Count 213 D Neut % (Auto) 71 Lymph % (Auto) 21 Gaston % (Auto) 7 Eos % (Auto) 0 Baso % (Auto) 0 Neut # (Auto) 9.2 H Lymph # (Auto) 2.8 Gaston # (Auto) 0.9 H Eos # (Auto) 0.0 Baso # (Auto) 0.0 Immature Gran # (Auto) 0.03 H Absolute Nucleated RBC 0.00 Immature Gran % 0 Nucleated RBC % 0 Sodium 142 Potassium 3.6 D Chloride 107 Carbon Dioxide 22.8 Anion Gap 12 BUN 9 Creatinine 0.7 Estim Creat Clear Calc 101.4 eGFR > 60 BUN/Creatinine Ratio 13 Glucose 132 H D Calculated Osmolality 283 Calcium 8.6 RISK AND INSURANCE MANAGER - A/P Assessment and plan (1) Intramural leiomyoma of uterus: Status: Acute Assessment and plan: Postoperative day #1 status post total abdominal hysterectomy Patient is meeting postoperative milestones. Will remove Gill catheter, encourage out of bed and ambulation, encourage oral intake encourage warm liquids to encourage bowel function. Possibly discharge home tomorrow if she is doing well (2) Dysfunctional uterine bleeding: Status: Acute Postoperative Procedures: Procedures Operation Date: 09/08/24 09:30 Actual Procedure Side Surgeon p Abdominal Hysterectomy Not Applicable Juan C Morrow MD Time Spent With Patient Time: Total time spent is greater than 50% in coordination of care (as documented) at patient's floor/unit and/or counseling patient: Time with patient: less than 15 minutes
[2024-09-09] MEDS: HYDROMORPHONE HCL 2 MG TABLET PO ×2 (14:12→19:46)
--- NOTE | 2024-09-09 15:20 | PC.NURSE ---
Patient ambulated approximately 150 feet with SBA.
[2024-09-09] MEDS: KETOROLAC INJ 30 MG/ML VIAL IVP (20:56)
[2024-09-10] VITALS: BP 129/81; PULSE 96; RESP 16; TEMP 36.1; O2SAT 97
[2024-09-10 04:00] VITALS: BP 131/83; PULSE 80; RESP 17; TEMP 36.3; O2SAT 96
[2024-09-10 07:37] VITALS: BP 145/83; PULSE 98; RESP 17; TEMP 36.5; O2SAT 96
[2024-09-10 08:42] VITALS: PULSE 109; RESP 18; RESP 99
[2024-09-10] MEDS: MULTIVITAMINS TABLET 1 TAB PO (09:42)
[2024-09-10 12:00] VITALS: BP 115/89; PULSE 90; RESP 18; TEMP 36.5; O2SAT 96
--- NOTE | 2024-09-10 12:09 | ESPR_ITS ---
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 No acute complaints, pain is better managed Urine output is adequate, fingerstick blood glucose is within normal limits Passing flatus but denies having any bowel movements Denies any nausea or vomiting Exam Vital Signs Temp Pulse Resp BP Pulse Ox O2 Del Method O2 Flow Rate 97.7 F 90 18 115/89 H 96 Room Air 4 09/10/24 12:00 09/10/24 12:00 09/10/24 12:00 09/10/24 12:00 09/10/24 12:00 09/10/24 12:00 09/08/24 13:00 Constitutional Constitutional: no acute distress Routine HEENT Exam Head: Present normocephalic and atraumatic Eye: Present EOMI and PERRL ENT: Present mucous membranes moist Routine Neck Exam Neck: Present supple and trachea midline Routine Respiratory Exam Respiratory: Present chest non-tender, lungs clear, normal breath sounds and no resp distress Routine Cardiovascular Exam Cardiovascular: Present RRR Routine Abdominal Exam Abdominal: Present soft and normoactive bowel sounds Routine Extremities Exam Extremities: Present full ROM Routine Skin Exam Skin: Present intact and dry Routine Neurological Exam Neurological: Present alert, oriented X3 and CN II-XII intact Routine Psychiatric Exam Psychiatric: Present normal affect and normal thought process Urinary Catheter Management Cath placed during this visit: no SANITARY LANDFILL SUPERVISOR - PN: Obj Data Labs 09/09/24 05:22 09/09/24 05:22 SANITARY LANDFILL SUPERVISOR - A/P Assessment and plan (1) Intramural leiomyoma of uterus: Status: Acute Assessment and plan: POD#2 1. Continue routine post operative care 2. Transition to PO meds. 3. Encourage to ambulate 4. Anticipate discharge home today. 5. Home care instructions reviewed (2) Dysfunctional uterine bleeding: Status: Acute Postoperative Procedures: Procedures Operation Date: 09/08/24 09:30 Actual Procedure Side Surgeon p Abdominal Hysterectomy Not Applicable Juan C Morrow MD Time Spent With Patient Time: Total time spent is greater than 50% in coordination of care (as documented) at patient's floor/unit and/or counseling patient: Time with patient: less than 15 minutes
--- NOTE | 2024-09-10 12:12 | ESDS_ITS ---
Planned Discharge Date 09/10/24 DS: Providers Provider Date of admission: 09/08/24 07:20 Primary care physician: Haile Mariscal Admitting Provider: Juan C Morrow MD Attending Provider on Admission: Juan C Morrow MD Consults: 09/08/24 14:16 Health Equity Referral - Knowledge Deficit Routine Comment: Positive screening for knowledge deficit needs. Attending Provider on DC: Juan C Morrow MD Discharging Provider: Juan C Morrow MD DS: Diagnosis Discharge Diagnosis (1) Intramural leiomyoma of uterus: Status: Acute (2) Dysfunctional uterine bleeding: Status: Acute Problem List Completed Was Problem List Reviewed/Reconciled?: Yes Hospital Course Hospital Course Hospital course: Patient doing well this morning. No acute complaints, pain is better managed Urine output is adequate, fingerstick blood glucose is within normal limits Passing flatus but denies having any bowel movements Denies any nausea or vomiting Time Spent with Patient Time attestation: Total time spent providing and/or coordinating discharge services: Time spent: Less than 30 minutes Quality: VTE Deep Vein Thrombosis/Pulmonary Embolism Present on Admission: No Exam - SENIOR INFORMATION DEVELOPER Vital Signs Temp Pulse Resp BP Pulse Ox O2 Del Method O2 Flow Rate 97.7 F 90 18 115/89 H 96 Room Air 4 09/10/24 12:00 09/10/24 12:00 09/10/24 12:00 09/10/24 12:00 09/10/24 12:00 09/10/24 12:00 09/08/24 13:00 Discharge Plan Plan Patient Disposition: HOME (Self Care) Patient condition on transfer: Stable Prescriptions/Referrals Prescriptions/Med Rec: New hydromorphone 2 mg Tablet 2 mg PO Q6H MDD 4 PRN (Reason: Pain Scale 4-6 (Moderate) 7 Days Qty: 28 0RF docusate sodium 100 mg Capsule 100 mg PO QDAY 30 Days Qty: 30 0RF ibuprofen 800 mg tablet 800 mg PO Q6H PRN (Reason: pain) 10 Days Qty: 40 0RF Continued multivitamin [Daily Multi-Vitamin] Tablet 1 tab PO QAM metformin 1,000 mg Tablet 1,000 mg PO BID Rybelsus 7 mg tablet 7 mg PO QAM Patient Comments: TOME MIR TABLETA TODOS LOS D 30 MINUTOS ANTES DE LA PRIMERA COMIDA DEL LUIS E CON 4 OZ DE AGUA Referrals: Haile Peng [Primary Care Provider] - Juan C Morrow MD [Physician] - Patient/Caregiver Discharge Instructions Meds to Beds: Yes Discharge Activity: activity as tolerated and resume usual activities Education Materials: Abdominal Hysterectomy Dc Print Language: Chilean Stand Alone Forms: Guillermina Award Info., Patient Portal Info Letter, DC from Surgery Discharge Order Discharge Orders: Discharge (Routine); Ordered 09/10/24 Ordered By: Juan C Morrow
[2024-09-10] MEDS: KETOROLAC INJ 30 MG/ML VIAL IVP (12:46)
== END 2024-09-10 14:23 | disposition home or self-care (01) | DRG 519 ==
LOC: S2W1 07:31 → S3SX 14:05
PROVIDERS: Admitting Provider Obstetrics & Gynecology; PCP Physician Assistant; Visit Provider Obstetrics & Gynecology
PROC: 0UT90ZZ Resection of Uterus, Open Approach (ICD-10-PCS; principal; 2024-09-08 09:30)
DX: D25.1 Intramural leiomyoma of uterus (principal); N93.9 Abnormal uterine and vaginal bleeding, unspecified; E11.9 Type 2 diabetes mellitus without complications; Z79.84 Long term (current) use of oral hypoglycemic drugs; Z60.8 Other problems related to social environment; N93.8 Other specified abnormal uterine and vaginal bleeding; Z98.891 History of uterine scar from previous surgery
CPT/HCPCS: 36415; 80048; 80053; 84703; 85025; 86850; 86900; 86901; 93005; A4217; A4649; J0131; J0690; J1100; J1171; J1885; J2250; J2704; J2765; J3010; J3490; J7030; A9270; J1805

== ENCOUNTER 2024-09-16 14:53 | Outpatient (AMB) | payer MEDICAID, SELFPAY ==
[2024-09-16 15:00] VITALS: BP 122/81; PULSE 94; RESP 17; TEMP 36.6; O2SAT 98
--- NOTE | 2024-09-16 15:00 | GYNCLNT_ITS ---
Vital Signs 09/16/24 15:00 Weight 76.204 kg Weight Measurement Method Standing Scale BP 122/81 Blood Pressure Source Automatic Cuff Blood Pressure Location Right Upper Arm Position Sitting Respiration 17 Pulse 94 Pulse Source Monitor Temp 97.9 F Temp Source Temporal Artery Scan Pulse Oximetry (%) 98 Oxygen Delivery Method Room Air Allergies/Home Meds Allergies & Medications Allergies No Known Allergies Allergy (Verified 09/16/24 15:01) Intake Visit Data Collection New Patient or Established: Established Patient (seen at [facility] within 3 years) Reason for Visit:: SURGERY FOLLOW UP Consent obtained for Telemed Visit: No Seen by Clinical Staff ONLY (RN/MA): No Publicity Director Required: Yes Do You Feel Safe at Home: Yes Authorities Contacted: N/A PCP or OBGYN visit in last 3 months: Yes Date of Last PCP or OBGYN visit: 09/10/24 Hx Now: No Are you currently on any form of Control: No Pain Present Currently: No Pain Scale Used: Freedman-Tovar/Numerical Pain scale:: 0 Smoking Status Smoking Status: Never smoker 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 Director Of Corporate Sponsorships History Menstrual regularity: regular Flow: normal Monthly: Yes Currently sexually active: Yes 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 1. Little interest or pleasure in doing things: not at all PHQ-9 8. Moving or speaking so slowly that other people could have noticed? - Or the opposite - being so fidgety or restless that you have been moving around a lot more than usual: not at all Source: Developed by Drs. Lance More, Yuly Jason, Byron Belcher and colleagues, with an educational janet from [employer]. Social History Living Situation History Lives With: Family Housing: [facility] Tobacco History Smoking Status: Never smoker Alcohol History Alcohol Intake: Never Domestic Abuse History Do You Feel Safe at Home: Yes History of Present Illness HPI Narrative Patient reports some redness at the incision site following her laparotomy and total abdominal hysterectomy performed on September 08, 2024. She experienced pain when the surgical tape was being removed. Leesa has been using a binder or belt as part of her postoperative care. She inquires about her ability to sleep on her side and engage in activities such as cooking. The patient has been cautious about movement and activity levels since the surgery. She is a female patient who is 8 days status post laparotomy and total abdominal hysterectomy with removal of a 7-centimeter leiomyoma. The patient did not report any discharge or pus from the surgical site, but there is positive for post-surgical discharge noted in the review of systems. Leesa's family member, who accompanied her to the visit, asked about the patient's ability to cook and expressed concern about the redness at the incision site. Exam Narrative Physical exam: - Abdomen: Surgical site examined. Incision appears well-healed after 7 days post-laparotomy and total abdominal hysterectomy. No discharge or pus noted. Some redness observed around the incision site, deemed normal post-surgical appearance. Tape removed from incision site without complications. - Skin: Some residual surgical glue noted on skin near incision site. General General Appearance: alert, in no apparent distress and healthy appearing Head Head exam: atraumatic Neck Neck exam: Present normal inspection and trachea midline Chest Chest inspection: Present normal inspection and symmetric chest wall rise External exam: Present normal external exam; Absent tenderness Neuro Neurological exam: Present oriented X3 Psych Psychiatric exam: Present normal affect and normal mood Office Procedures OB Clinic LOC & Office Proc's Nursing/Assessment Patient Status: Established Patient OB Clinic Nursing Assessment: Medication Reconciliation, Update PMH in EMR and Vital Signs OB Clinic Coordination of Care: Complex Care and Chronic Disease 1-5, Consent,records obtained, informed consent, Education Simp Pt/Fam and 4+ Authorizations needed Established Patient Charge Established Patient Point Assignment: 100 Established Patient Point Charge: EP Level 3 (80-115) Assessment & Plan Diagnosis / Problem List (1) Intramural leiomyoma of uterus: Status: Acute (2) S/P JUSTO (total abdominal hysterectomy): Status: Acute Assessment and Plan: - Pathology report (09/08/2024): Benign leiomyomas, proliferative endometrium, negative for hyperplasia or malignancy Plan Status post total abdominal hysterectomy: - Patient is 8 days status post total abdominal hysterectomy with removal of a 7 cm leiomyoma. - Surgical incision healing well, with normal postoperative appearance. - Pathology report confirms benign leiomyomas and proliferative endometrium, negative for hyperplasia or malignancy. - Some redness around incision site, assessed as normal postoperative changes. - No signs of infection or complications noted. Plan: - Remove surgical tape from incision site. - Instruct patient on proper incision care: ? Clean with soap, water, and rubbing alcohol to remove residual adhesive. - Recommend use of abdominal binder for support, especially when sleeping on side. - Encourage gradual increase in activity: ? Walk 15-20 minutes daily. ? Avoid lifting more than 20 pounds from floor. ? Avoid mopping or heavy cleaning, but light work and cooking are permitted. - Follow-up appointment in 2 weeks.
== END 2024-09-16 15:48 | disposition home or self-care (01) ==
LOC: HODSOBC 14:53
PROVIDERS: Supervising Provider Obstetrics & Gynecology; Visit Provider Obstetrics & Gynecology
DX: Z48.816 Encounter for surgical aftercare following surgery on the genitourinary system (principal); Z90.710 Acquired absence of both cervix and uterus
CPT/HCPCS: 99213; G0463

== ENCOUNTER 2024-10-22 02:08 | Emergency (ER) | payer MEDICAID, SELFPAY ==
[2024-10-22 02:09] VITALS: BMI 32.1
[2024-10-22 02:27] VITALS: BP 115/75; PULSE 88; RESP 20; TEMP 36.7; O2SAT 98
[2024-10-22 02:51] LABS: Collection Type, Urine Clean Catch
[2024-10-22 03:27] LABS: Bilirubin,Urine Negative (Negative); Blood,Urine Negative (Negative); Clarity,Urine Clear (Clear/Hazy); Color,Urine Yellow (Lt Yel-Yel); Culture Indicated,Urine Not Indicated; Glucose, Urine 1+ (Negative); Ketones,Urine Negative (Negative); Leukocyte Esterase,Urine Positive (Negative); Nitrite,Urine Negative (Negative); PH,Urine 6.0 (5.0-7.0); Protein,Urine Trace (Neg - Trace); RBC,Urine 3 /hpf (0-3); Specific Gravity,Urine 1.030 (1.001-1.035); Squamous Epithelial Cell,Urine 7 /hpf (0-5); Urobilinogen,Urine Negative mg/dL (0.0-1.0); WBC,Urine 3 /hpf (0-5)
[2024-10-22 03:31] LABS: HCG Qualitative,Urine Negative
--- NOTE | 2024-10-22 05:52 | EDNOTE_ITS ---
ED Female Urogenital RME/HPI General Chief complaint: Urogenital-Female Stated complaint: PAIN AND BURNING IN PRIVATE AREA Time Seen by Provider: 10/22/24 05:46 Arrival date/time: 10/22/24 02:08 44F with history of DM presents to ED with 2 days of vaginal/vulva itching after she thinks water splashed on it while having a BM on a public toilet. Patient denies pain and discharge. Limitations: no limitations Related Data Home Medications ?Medication ?Instructions ?Recorded ?Confirmed metformin 1,000 mg tablet 1,000 mg PO BID 11/26/2212/24 semaglutide 7 mg tablet (Rybelsus) 7 mg PO QAM 3 09/08/24 multivitamin (Daily Multi-Vitamin 1 tab PO QAM 5 09/08/24 tablet) Previous Rx's ?Medication ?Instructions ?Recorded hydrocortisone 1 % topical cream 1 applic topical QDAY PRN itching 10/22/24 (Cortizone-10) #28.35 grams Allergies Allergy/AdvReac Type Severity Reaction Status Date / Time No Known Allergies Allergy Verified 09/16/24 15:01 Review of Systems Review of Systems Systems Reviewed: All systems reviewed, normal except as documented Constitutional Constitutional: Reports system reviewed and no additional complaints, except as documented, Denies fever(s) and Denies headache(s) ENT Ears, Nose, Mouth, and Throat: Denies disequilibrium and Denies headache(s) Cardiovascular Cardiovascular: Reports system reviewed and no additional complaints, except as documented, Denies chest pain and Denies dyspnea Respiratory Respiratory: Reports system reviewed and no additional complaints, except as documented, Denies cough and Denies dyspnea Gastrointestinal Gastrointestinal: Reports system reviewed and no additional complaints, except as documented, Denies abdominal pain, Denies nausea and Denies vomiting Genitourinary Genitourinary: Reports as per HPI and Reports vaginal pruritus Neurologic Neurologic: Reports system reviewed and no additional complaints, except as documented, Denies confusion, Denies disequilibrium and Denies headache(s) Psychiatric Psychiatric: Denies confusion Past Medical History Past Medical History NEUROLOGIC: Positive Neurological Disorders and Migraine; Negative Seizures CARDIAC: Positive Hypertension; Negative Cardiac Disorders or Congestive Heart Failure RESPIRATORY: Negative Chronic Obstructive Pulmonary Disease (COPD), Asthma or Bronchitis GASTROINTESTINAL: Positive Gastrointestinal Disorders and Obesity; Negative Hepatitis GENITOURINARY: Negative Genitourinary Disorders or Renal Disease REPRODUCTIVE: Positive Previous Pregnancies (6, 3 children); Negative Endometriosis MUSCULOSKELETAL: Negative Musculoskeletal Disorders ENDOCRINE: Positive Endocrine Disorders and Diabetes Mellitus Type 2; Negative Diabetes Mellitus Type 1 HEMATOLOGIC: Positive Blood Disorders and Anemia; Negative Sickle Cell Disease PSYCHO/SOCIAL: Positive Anxiety (panic attack) OTHER HISTORY: Positive Hospitalization (surgery), Chicken Pox and Measles; Negative Autoimmune Disease, Shingles, Blood Transfusions, Blood Transfusion Reaction, Anesthesia Reactions, MRSA or Cancer Family History FAMILY HISTORY: Positive Family Cancer and Family Surgery; Negative Family Psychiatric Problems, Family Respiratory Disorders, Family Car diac Disorders, Family Gastrointestinal Problems or Family Anesthesia Reaction Surgical History SURGICAL: Positive Tubal Ligation and Section (x3) Social History SMOKING STATUS: Never smoker ED Exam General Limitations: Present no limitations General appearance: Present alert and in no apparent distress Head Head exam: Present atraumatic Eye Eye exam: Present normal appearance, PERRL and EOMI ENT ENT exam: Present normal exam, normal oropharynx and mucous membranes moist Neck Neck exam: Present normal inspection, full ROM and trachea midline Chest Chest inspection: Present normal inspection and symmetric chest wall rise Respiratory Respiratory exam: Present normal lung sounds bilaterally Cardiovascular Cardiovascular exam: Present regular rate, normal rhythm and normal heart sounds Abdominal Exam Abdominal exam: Present soft and normal bowel sounds Extremities Exam Extremities exam: Present normal inspection and full ROM Back Exam Back exam: Present normal inspection and full ROM Neurological Exam Neurological exam: Present alert, oriented X3 and CN II-XII intact Psychiatric Psychiatric exam: Present normal affect and normal mood Skin Skin exam: Present warm, dry, intact and normal color Course Quality Measures none Orders Category Date Time Status HCG Qualitative,Urine Stat Lab 10/22/24 02:47 Completed UA, C/S IF [Urinalysis, C/S if Indicated] Stat Lab 10/22/24 02:47 Completed Vital Signs Vital signs: Vital Signs Temperature 98.0 F 10/22/24 02:27 Pulse Rate 88 10/22/24 02:27 Respiratory Rate 20 10/22/24 02:27 Blood Pressure 115/75 10/22/24 02:27 Pulse Oximetry (%) 98 10/22/24 02:27 Oxygen Delivery Method Room Air 10/22/24 02:27 O2 at 98% on RA and WNLs Urogenital - Female MDM Narrative MDM Narrative:: 44F with history of DM presents to ED with 2 days of vaginal/vulva itching after she thinks water splashed on it while having a BM on a public toilet. Patient denies pain and discharge. Physical exam with long distance operator Shantell POOL TECHNICIAN reveals no obvious rash, redness, discharge, or tenderness. Patient is afebrile, calm, and alert. UA clean. Unlikely STD. Meds and newspaper delivery counselor given. Patient data External records reviewed:: [facility] previous records Clinical information provided by:: patient Social determinants that could affect healthcare access:: none Patient has the following chronic illnesses:: DM How is presenting disease/condition affected by chronic disease/condition?: exacerbated by Evaluation data The following diagnostics were reviewed and interpreted by me:: other (specify) (none) Lab and/or radiology exams considered but not ordered:: not ordered Interpretation Summary: n/a Medications / Prescriptions Medications or Prescriptions considered but not ordered:: not ordered Medication administrations:: n/a Consultations Consultation(s) initiated? (list below): No Diagnosis Urogenital Female Differential Diagnosis: urinary tract infection, bacterial vaginosis, trichomoniasis, cervicitis, ovarian cyst, vaginitis, ruptured ovarian cyst, cyst of Bartholin's gland, cystitis and dysmenorrhea Most likely diagnosis given after review of the tests above:: vulva itching Admission Indicated Admission indicated?: not indicated Admission Request Was there a request for admission?: No Disposition Plan Disposition Plan: Discharge Discharge Attestation Discharge Attestation: The patient and all family members were given an opportunity to ask questions and understood the discharge instructions. Discharge instructions specifically effects, indications for sooner follow up or return to the emergency department, and the expected course of current diagnosis. Patient condition: Stable Discharge Plan Plan Patient Disposition: HOME (Self Care) Discharge Disposition comment: Stable Prescriptions/Referrals Prescriptions/Med Rec: New hydrocortisone [Cortizone-10] 1 % cream 1 applic topical QDAY PRN (Reason: itching) Qty: 28.35 0RF No Action multivitamin [Daily Multi-Vitamin] Tablet 1 tab PO QAM metformin 1,000 mg Tablet 1,000 mg PO BID Rybelsus 7 mg tablet 7 mg PO QAM Patient Comments: TOME MIR TABLETA TODOS LOS D 30 MINUTOS ANTES DE LA PRIMERA COMIDA DEL LUIS E CON 4 OZ DE AGUA Referrals: Haile Peng [Primary Care Provider] - In 1 week Problem List Clinical Impression: Itching of vulva Patient/Caregiver Discharge Instructions Education Materials: ED Dermatitis Non Specific Rash Additional Instructions: Please follow-up with PCP/OBGYN within 24-48 hours and return immediately if symptoms worsen. Print Language: [place] Stand Alone Forms: Patient Portal Info Letter PA/MAIL PROCESSING EQUIPMENT MECHANIC Supervising Physician PA/MAIL PROCESSING EQUIPMENT MECHANIC Supervising Physician: Dr. Tran
== END 2024-10-22 06:23 | disposition home or self-care (01) ==
PROVIDERS: Emergency Provider Emergency Medicine; PCP Physician Assistant
DX: L29.2 Pruritus vulvae (principal); E11.9 Type 2 diabetes mellitus without complications
CPT/HCPCS: 81001; 81025; 99282